=== PATIENT | female | born 1965 | race Caucasian/White ===

== ENCOUNTER 2017-05-30 09:11 | Observation (INO) | payer SELFPAY ==
[~2017-05-30] VITALS: Ht 152.4 cm; Wt 64.0 kg
[~2017-05-30 09:11] MED LIST: ALPR-411 PO; CALC500C70 PO; CITA40TA4 PO; CYAN500T PO; MULT-506 PO
[2017-05-30] MEDS ORDERED: NITROGLYCERIN 0.4 MG SL PER TAB CHARGE SL STA (09:55)
[2017-05-30] MEDS ORDERED: SODIUM CHLORIDE 0.9% 1000ML 1,000 ML IV STA (09:55)
--- NOTE | 2017-05-30 10:02 | EMERGENCY ROOM VISIT NOTE ---
History First contact with patient: 09:21 Chief Complaint: CHEST PAIN Stated Complaint: CHEST PAIN Nursing Triage Summary: Intermittent chest pain for two days. History of Present Illness The patient is a 51 year old female who presents to the Emergency Room with complaints of chest pain. The patient states she developed chest pain yesterday. She states that he is worsening throughout the day. She reports that the pain is stabbing and burning. She states it is left-sided and occasionally radiates down the left arm and around to the back. She states that she felt short of breath today as well as lightheaded. She states the pain is worse with deep inspiration. The patient rates her discomfort a 2/10. The patient was given nature glycerin with improvement in her pain. The patient reports a history of hypoglycemia. She reports a strong family history of coronary artery disease. She states that a cousin just of a myocardial infarction in their 40s. She states her mother had her first myocardial infarction in her 20s. Her mother also had lupus. The patient denies any known personal history of DVT or PE or coagulopathy. She states she has never had a stress test or echocardiogram. She states that she has had ongoing asymmetric left leg pain and swelling. Review of Systems A 10 system review of systems was completed with positives and pertinent negatives listed in the HPI. Past Medical/Surgical History Medical Problems: (1) Ulcer Surgical Problems: (1) H/O gastric bypass (2) Hx of cholecystectomy Family History Patient reports no known family medical history. Social History Smoking Status: Former Smoker Alcohol Use: occasionally Marital Status: other Occupation Status: employed Current/Historical Medications Scheduled Cyanocobalamin (Vitamin B-12), 500 MCG PO 2XWK Multivitamin (Multivitamin), 1 TAB PO DAILY Potassium Gluconate (Potassium Gluconate), 1 TAB PO 2XWK Miscellaneous Medications Calcium/Vitamin D (Os-Jann 500 Plus D), 1 TAB PO Allergies Coded Allergies: Codeine (Verified Adverse Reaction, Intermediate, N/V, 05/30/17) Physical Exam Vital Signs Date Time Temp Pulse Resp B/P (MAP) Pulse Ox O2 Delivery O2 Flow Rate FiO2 05/30/17 14:46 60 18 97 Room Air 05/30/17 13:41 61 100 05/30/17 13:31 110/67 05/30/17 13:11 47 18 100 05/30/17 13:05 61 05/30/17 13:01 119/80 05/30/17 12:52 58 18 112/69 98 Room Air 05/30/17 12:52 112/69 05/30/17 11:01 111/70 05/30/17 10:57 57 16 132/74 100 Room Air 05/30/17 10:56 132/74 05/30/17 10:42 74 20 107/72 97 Room Air 05/30/17 10:41 73 27 107/72 97 05/30/17 10:35 141/75 05/30/17 10:34 62 14 141/75 98 05/30/17 10:30 128/73 05/30/17 10:27 119/69 05/30/17 10:27 78 20 119/69 97 Room Air 05/30/17 10:16 140/68 05/30/17 10:11 56 20 100 05/30/17 10:01 144/78 05/30/17 10:00 64 20 144/78 99 Room Air 05/30/17 09:46 119/72 05/30/17 09:45 62 20 119/72 100 Room Air 05/30/17 09:41 62 18 100 05/30/17 09:31 126/80 05/30/17 09:30 72 20 126/80 96 Room Air 05/30/17 09:22 99 Room Air 05/30/17 09:21 99 Room Air 05/30/17 09:19 66 05/30/17 09:18 36.5 72 20 136/82 100 Room Air 05/30/17 09:15 136/82 Physical Exam VITALS: Vitals are noted on the nurse's note and reviewed by myself. Vital signs stable. The patient is afebrile. She is not tachycardic, tachypneic or hypoxic. GENERAL: This is a 51-year-old female, in no acute distress, nondiaphoretic, well-developed well-nourished. SKIN: There is edema noted to the left lower extremity. There is mild calf tenderness. There is no significant swelling in the right lower extremity. There is no tenting of the skin. Capillary reflex less than 2 seconds. HEAD: Normocephalic atraumatic. EARS: External auditory canals clear, tympanic membranes pearly correa without erythema or effusion bilaterally. EYES: Pupils equal round and reactive to light and accommodation. Conjunctivae without injection, sclerae without icterus. Extraocular movements intact. NOSE: Patent, turbinates without inflammation or discharge. MOUTH: Mucous membranes moist. Tonsils are not enlarged. Pharynx without erythema or exudate. Uvula midline. Airway patent. Tongue does not deviate. NECK: Supple without nuchal rigidity. No lymphadenopathy. No thyromegaly. Cervical spine is nontender. No JVD. HEART: Regular rate and rhythm without murmurs gallops or rubs. LUNGS: Clear to auscultation bilaterally without wheezes, rales or rhonchi. No retractions or accessory muscle use. ABDOMEN: Positive bowel sounds x 4. Soft, nontender, without masses or organomegaly. Lopez sign negative. MUSCULOSKELETAL: No muscle atrophy, erythema,noted. There is tenderness to palpation of the left calf which is swollen. There is no obvious palpable cord. Normal gait. Strength 5/5 throughout. NEURO: Patient was alert and oriented to person place and time. No focal neurological deficits. Medical Decision & Procedures ER Provider Diagnostic Interpretation: L-SPINE MIN 4 VIEWS ROUTINE HISTORY: 51-year-old female presents with acute low back pain without reported trauma. COMPARISON: Abdominal radiographs 06/13/2016. TECHNIQUE: Frontal, lateral, coned-down lateral and bilateral oblique images of the lumbar spine. FINDINGS: 5 nonrib bearing lumbar type vertebral segments are present. There is gentle convex left curvature of the lumbar spine, unchanged. There is no acute fracture or dislocation. No pars defect is seen. Intervertebral disc space narrowing is present at T11-T12. Anastomotic sutures are seen within the region of the epigastrium. Cholecystectomy clips are present. Contrast opacified urinary bladder and renal collecting systems are present from recent CTA study. There is atherosclerotic plaquing of the abdominal aorta. IMPRESSION: 1. No acute fracture or dislocation. 2. Mild intervertebral disc space narrowing at T11-T12. Venous Doppler left leg LEFT VENOUS DOPP LOWER EXT UNILAT CLINICAL HISTORY: left leg swelling pain. Edema. TECHNIQUE: Venous Doppler COMPARISON STUDY: None FINDINGS: Normal study IMPRESSION: Normal study CT ANGIOGRAM OF THE CHEST CLINICAL HISTORY: Atypical chest pain, shortness of breath, positive d-dimer. COMPARISON STUDY: Chest x-ray dated 05/30/2017 TECHNIQUE: Following the IV administration of 90 mL of Optiray-320, CT angiogram of the thorax was performed from the thoracic inlet to the lung bases utilizing the pulmonary embolus protocol. Images are reviewed in the axial, sagittal, and coronal planes. IV contrast was administered without complication. MIP imaging was performed. CT DOSE: 212.71 mGy.cm FINDINGS: There are postsurgical and esophagogastric junction. There is a hiatal hernia. There is a 15 mm left lobe thyroid nodule No pathologically enlarged axillary mediastinal or hilar lymph nodes were visualized. There was no evidence of thoracic aortic dilatation. There were no pulmonary artery filling defects to indicate acute pulmonary embolism. No pleural effusions are visualized. There are mild dependent atelectatic changes. There is underlying pulmonary emphysema. Reticulonodular right apical opacities are likely chronic. There there are no areas of parenchymal consolidation suspicious for an acute pneumonitis. IMPRESSION: 1. No evidence of acute pulmonary embolism 2. Pulmonary emphysema 3. Reticulonodular right apical opacities, likely chronic. 4. No evidence of acute parenchymal consolidation CHEST ONE VIEW PORTABLE CLINICAL HISTORY: 51 year-old Female presenting with chest pain. TECHNIQUE: Portable upright AP view of the chest was obtained. COMPARISON: 06/13/2016. FINDINGS: Cardiomediastinal silhouette normal. Previously noted reticular opacity at the right apex is less prominent on the current exam and is without change. No new focal infiltrate. Pleural spaces clear. Osseous structures and upper abdomen normal. IMPRESSION: 1. No acute cardiopulmonary disease. 2. Focal reticulation at the right apex has not progressed since the prior exam (stable since 2016) and may represent focal fibrosis or cicatrizing atelectasis as a consequence of prior infection, including mycobacterial. Laboratory Results 05/30/17 09:20 Red Blood Count 3.94, Mean Corpuscular Volume 85.8, Mean Corpuscular Hemoglobin 27.9, Mean Corpuscular Hemoglobin Concent 32.5, Mean Platelet Volume 11.0, Neutrophils (%) (Auto) 67.4, Lymphocytes (%) (Auto) 27.9, Monocytes (%) (Auto) 3.7, Eosinophils (%) (Auto) 0.3, Basophils (%) (Auto) 0.6, Neutrophils # (Auto) 4.60, Lymphocytes # (Auto) 1.90, Monocytes # (Auto) 0.25, Eosinophils # (Auto) 0.02, Basophils # (Auto) 0.04 05/30/17 09:20 Test 05/30/17 09:20 05/30/17 10:54 White Blood Count 6.82 K/uL (4.8-10.8) Red Blood Count 3.94 M/uL (4.2-5.4) Hemoglobin 11.0 g/dL (12.0-16.0) Hematocrit 33.8 % (37-47) Mean Corpuscular Volume 85.8 fL (80-100) Mean Corpuscular Hemoglobin 27.9 pg (25-34) Mean Corpuscular Hemoglobin Concent 32.5 g/dl (32-36) Platelet Count 305 K/uL (130-400) Mean Platelet Volume 11.0 fL (7.4-10.4) Neutrophils (%) (Auto) 67.4 % Lymphocytes (%) (Auto) 27.9 % Monocytes (%) (Auto) 3.7 % Eosinophils (%) (Auto) 0.3 % Basophils (%) (Auto) 0.6 % Neutrophils # (Auto) 4.60 K/uL (1.4-6.5) Lymphocytes # (Auto) 1.90 K/uL (1.2-3.4) Monocytes # (Auto) 0.25 K/uL (0.11-0.59) Eosinophils # (Auto) 0.02 K/uL (0-0.5) Basophils # (Auto) 0.04 K/uL (0-0.2) RDW Standard Deviation 40.1 fL (36.4-46.3) RDW Coefficient of Variation 12.7 % (11.5-14.5) Immature Granulocyte % (Auto) 0.1 % Immature Granulocyte # (Auto) 0.01 K/uL (0.00-0.02) Prothrombin Time 10.7 SECONDS (9.0-12.0) Prothromb Time International Ratio 1.0 (0.9-1.1) Activated Partial Thromboplast Time 25.6 SECONDS (21.0-31.0) Partial Thromboplastin Ratio 1.0 D-Dimer 630 ug/L FEU (0-500) Anion Gap 9.0 mmol/L (3-11) Est Creatinine Clear Calc Drug Dose 77.4 ml/min Estimated GFR () 110.3 Estimated GFR (Non- 95.1 BUN/Creatinine Ratio 11.5 (10-20) Calcium Level 8.5 mg/dl (8.5-10.1) Magnesium Level 2.2 mg/dl (1.8-2.4) Total Bilirubin 0.5 mg/dl (0.2-1) Aspartate Amino Transf (AST/SGOT) 18 U/L (15-37) Alanine Aminotransferase (ALT/SGPT) 25 U/L (12-78) Alkaline Phosphatase 113 U/L (45-117) Total Creatine Kinase 149 U/L (26-192) Total Protein 6.8 gm/dl (6.4-8.2) Albumin 3.6 gm/dl (3.4-5.0) Globulin 3.2 gm/dl (2.5-4.0) Albumin/Globulin Ratio 1.1 (0.9-2) Thyroid Stimulating Hormone (TSH) 0.723 uIu/ml (0.300-4.500) Urine Color DK YELLOW Urine Appearance CLEAR (CLEAR) Urine pH 5.5 (4.5-7.5) Urine Specific Donnelly 1.016 (1.000-1.030) Urine Protein NEG (NEG) Urine Glucose (UA) NEG (NEG) Urine Ketones NEG (NEG) Urine Occult Blood NEG (NEG) Urine Nitrite POS (NEG) Urine Bilirubin NEG (NEG) Urine Urobilinogen NEG (NEG) Urine Leukocyte Esterase NEG (NEG) Urine WBC (Auto) 1-5 /hpf (0-5) Urine RBC (Auto) 0-4 /hpf (0-4) Urine Hyaline Casts (Auto) 0 /lpf (0-5) Urine Epithelial Cells (Auto) 5-10 /lpf (0-5) Urine Bacteria (Auto) NEG (NEG) Medications Administered Medications (Trade) Dose Ordered Sig/Angela Route Start Time Stop Time Status Last Admin Dose Admin Nitroglycerin (Nitrostat Tab) 0.4 mg Q5M STAT SL 05/30/17 09:55 05/30/17 09:57 DC 05/30/17 10:22 0.4 MG Sodium Chloride 1,000 ml @ 125 mls/hr Q8H STAT IV 05/30/17 09:55 05/30/17 16:05 DC 05/30/17 09:55 125 MLS/HR Procedure The 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 They maintained a normal sinus rhythm without ectopy. ECG Indication: chest pain Rate (beats per minute): 65 Rhythm: normal sinus Findings: no acute ischemic change Change: no significant change ED Course The patient was seen and examined. Previous visits were reviewed. The patient does not have a fever or leukocytosis. She does have a mild anemia. She does not have any significant electrolyte abnormalities. Cardiac enzymes were not elevated. TSH was within normal limits. INR was 1.0. D-dimer was elevated. Urinalysis suggests contamination. It should be noted that the patient is taking Azo. Chest x-ray reveals chronic findings CTA of the chest was negative for pulmonary embolus X-ray of the lumbar spine reveals chronic changes Ultrasound of the left lower extremity is negative for DVT The patient presents to the emergency department for chest pain. Her chest pain most recent episode started just prior to arrival. She was given nitroglycerin in the ambulance which improve her pain markedly. Her pain was resolved with an additional nitroglycerin in the emergency department. She has also had low back pain. She has also had dyspnea and left leg swelling. I do not see any evidence for DVT or PE at this time. Given the patient's risk factors, chest pain and the fact that it was relieved with nitroglycerin, she would benefit from further evaluation and management in the hospital. [facility] patient. The case was discussed with Dr. Pedersen who agrees with the assessment and treatment plan. Medical Decision DIFFERENTIAL DIAGNOSIS: Aortic dissection, myocarditis, pericarditis, cervical disc disease, costochondritis, herpes zoster, rib fracture, pleuritis, pneumonia , pulmonary embolus, tension pneumothorax, anxiety disorder, somatoform disorder , choledocholithiasis, status, esophagitis, esophageal spasm, esophageal reflux , esophageal rupture, pancreatitis, peptic ulcer disease, cardiac ischemia, ST elevation NE, acute coronary syndrome, arrhythmia, coronary artery vasospasm. vavular heart disease, coronary artery disease, among others. Impression Primary Impression: Substernal precordial chest pain Additional Impressions: Low back pain Leg swelling Departure Information Dispostion Admitted as an inpatient Referrals No Doctor, Assigned Forms HOME CARE DOCUMENTATION FORM, IMPORTANT VISIT INFORMATION Patient Instructions [facility] Problem Qualifiers Additional Impressions: Low back pain Chronicity: chronic
[2017-05-30 10:03] LABS: BASO % 0.6 %; BASO ABS # 0.04 K/uL (0-0.2); COMPLETE YES; EOS % 0.3 %; HEMATOCRIT 33.8 % (37-47); IG% 0.1 %; LYMPH % 27.9 %; MEAN CELL VOLUME 85.8 fL (80-100); MEAN CORPUSCULAR HEMOGLOBIN 27.9 pg (25-34); MEAN CORPUSCULAR HGB CONC 32.5 g/dl (32-36); MONO % 3.7 %; NEUT % 67.4 %; PLATELET COUNT 305 K/uL (130-400); RED BLOOD COUNT 3.94 M/uL (4.2-5.4); WHITE BLOOD COUNT 6.82 K/uL (4.8-10.8)
[2017-05-30 10:11] LABS: ALT/SGPT 25 U/L (12-78); BLOOD UREA NITROGEN 9 mg/dl (7-18); BUN/CREATININE RATIO 11.5 (10-20); CALCIUM 8.5 mg/dl (8.5-10.1); CARBON DIOXIDE 25 mmol/L (21-32); CHLORIDE 109 mmol/L (98-107); CREATININE 0.74 mg/dl (0.60-1.20); GLUCOSE 86 mg/dl (70-99); POTASSIUM 3.2 mmol/L (3.5-5.1); SODIUM 143 mmol/L (136-145)
--- NOTE | 2017-05-30 10:19 | DIAGNOSTIC IMAGING REPORT ---
CHEST ONE VIEW PORTABLE CLINICAL HISTORY: 51 year-old Female presenting with chest pain. TECHNIQUE: Portable upright AP view of the chest was obtained. COMPARISON: 06/13/2016. FINDINGS: Cardiomediastinal silhouette normal. Previously noted reticular opacity at the right apex is less prominent on the current exam and is without change. No new focal infiltrate. Pleural spaces clear. Osseous structures and upper abdomen normal. IMPRESSION: 1. No acute cardiopulmonary disease. 2. Focal reticulation at the right apex has not progressed since the prior exam (stable since 2015) and may represent focal fibrosis or cicatrizing atelectasis as a consequence of prior infection, including mycobacterial. Electronically signed by: Tae Rob 05/30/2017 10:18 AM Dictated Date/Time: 05/30/2017 10:15 AM
[2017-05-30 10:21] LABS: ALB/GLOB RATIO 1.1 (0.9-2); ALKALINE PHOSPHATASE 113 U/L (45-117); AST/SGOT 18 U/L (15-37); CKMB/CK RATIO 2.5 (0-3.0); THYROID STIMULATING HORMONE 0.723 uIu/ml (0.300-4.500)
[2017-05-30 10:41] LABS: PROTHROMBIN TIME (PATIENT) 10.7 SECONDS (9.0-12.0)
[2017-05-30 11:15] LABS: URINE APPEARANCE CLEAR (CLEAR); URINE BILIRUBIN NEG (NEG); URINE COLOR DK YELLOW; URINE NITRITE POS (NEG); URINE PH 5.5 (4.5-7.5); URINE SPECIFIC GRAVITY 1.016 (1.000-1.030); UROBILINOGEN NEG (NEG); ZZUR CULT IF INDIC CLEAN CATCH NO
[2017-05-30] MEDS ORDERED: OPTIRAY 320 IV PRN (11:15)
[2017-05-30 11:27] LABS: MANUAL MICROSCOPIC REQUIRED? NO; REVIEW REQ? NO
--- NOTE | 2017-05-30 11:32 | DIAGNOSTIC IMAGING REPORT ---
CT ANGIOGRAM OF THE CHEST CLINICAL HISTORY: Atypical chest pain, shortness of breath, positive d-dimer. COMPARISON STUDY: Chest x-ray dated 05/30/2017 TECHNIQUE: Following the IV administration of 90 mL of Optiray-320, CT angiogram of the thorax was performed from the thoracic inlet to the lung bases utilizing the pulmonary embolus protocol. Images are reviewed in the axial, sagittal, and coronal planes. IV contrast was administered without complication. MIP imaging was performed. CT DOSE: 212.71 mGy.cm FINDINGS: There are postsurgical and esophagogastric junction. There is a hiatal hernia. There is a 15 mm left lobe thyroid nodule No pathologically enlarged axillary mediastinal or hilar lymph nodes were visualized. There was no evidence of thoracic aortic dilatation. There were no pulmonary artery filling defects to indicate acute pulmonary embolism. No pleural effusions are visualized. There are mild dependent atelectatic changes. There is underlying pulmonary emphysema. Reticulonodular right apical opacities are likely chronic. There there are no areas of parenchymal consolidation suspicious for an acute pneumonitis. IMPRESSION: 1. No evidence of acute pulmonary embolism 2. Pulmonary emphysema 3. Reticulonodular right apical opacities, likely chronic. 4. No evidence of acute parenchymal consolidation Electronically signed by: Moshe Vasquez M.D. 05/30/2017 11:30 AM Dictated Date/Time: 05/30/2017 11:21 AM
--- NOTE | 2017-05-30 12:52 | DIAGNOSTIC IMAGING REPORT ---
L-SPINE MIN 4 VIEWS ROUTINE HISTORY: 51-year-old female presents with acute low back pain without reported trauma. COMPARISON: Abdominal radiographs 06/13/2016. TECHNIQUE: Frontal, lateral, coned-down lateral and bilateral oblique images of the lumbar spine. FINDINGS: 5 nonrib bearing lumbar type vertebral segments are present. There is gentle convex left curvature of the lumbar spine, unchanged. There is no acute fracture or dislocation. No pars defect is seen. Intervertebral disc space narrowing is present at T11-T12. Anastomotic sutures are seen within the region of the epigastrium. Cholecystectomy clips are present. Contrast opacified urinary bladder and renal collecting systems are present from recent CTA study. There is atherosclerotic plaquing of the abdominal aorta. IMPRESSION: 1. No acute fracture or dislocation. 2. Mild intervertebral disc space narrowing at T11-T12. Electronically signed by: Naren Enrique 05/30/2017 12:51 PM Dictated Date/Time: 05/30/2017 12:47 PM
--- NOTE | 2017-05-30 14:29 | DIAGNOSTIC IMAGING REPORT ---
Venous Doppler left leg LEFT VENOUS DOPP LOWER EXT UNILAT CLINICAL HISTORY: left leg swelling pain. Edema. TECHNIQUE: Venous Doppler COMPARISON STUDY: None FINDINGS: Normal study IMPRESSION: Normal study Electronically signed by: Phil Wall M.D. 05/30/2017 2:27 PM Dictated Date/Time: 05/30/2017 2:27 PM
[2017-05-30] MEDS ORDERED: ACETAMINOPHEN 325 MG TAB PO PRN (15:00)
[2017-05-30] MEDS ORDERED: ONDANSETRON INJ 2 MG/ML 2 ML VIAL IV PRN (15:00)
[2017-05-30] MEDS ORDERED: NITROGLYCERIN 0.4 MG SL PER TAB CHARGE SL PRN (15:00)
[2017-05-30] MEDS ORDERED: POTA550T4 PO (15:06)
[2017-05-30] MEDS ORDERED: IV FLUIDS COMPLETED PRN (15:30)
[2017-05-30] MEDS ORDERED: POTASSIUM CHLORIDE 10 MEQ TABCR PO SCH (16:00)
--- NOTE | 2017-05-30 16:07 | History and Physical ---
History & Physical Date & Time of Service: May 30, 2017 ~ 14:30 Chief Complaint: Chest Pain Primary Care Physician: Gibson Arredondo History of Present Illness 51 year old female who presents to the ER with chest pain. Patient reports she first noticed the pain yesterday while a picnic. She reports the pain is located on the left side her chest and radiated into her left shoulder and down into the left arm. She describes the pain as a stabbing. She reports several episodes since then. She denies any specific causative or alleviating factors. She rates the pain #8/10 at its worst. Today while at work the pain returned and she had associated shortness of breath, lightheadedness, and diaphoresis. Patient received nitro and has had resolution of her pain. She has chronic low back pain which is unchanged. She reports she other pond has been feeling well recently. Has been tolerating ADLs without any problems. Climbs two flights of stairs regularly without difficulty. She denies abdominal pain, vomiting, and diarrhea. No fever or chills. She denies urinary symptoms. In the ER, initial troponin is negative and EKG does not show any acute ST changes. CTA chest is negative for PE. LLE US is negative for DVT. Past Medical/Surgical History Medical Problems: (1) No significant medical problems Status: Chronic (2) Ulcer Status: Resolved Surgical Problems: (1) H/O gastric bypass Status: Resolved (2) Hx of cholecystectomy Status: Resolved Family History Diabetes mellitus (DM) MOTHER FH: CAD (coronary artery disease) MOTHER (first [place] in her 20s) GRANDFATHER ([place] in his 70s) UNCLE ( from [place] in his 50s) COUSIN ( from [place] in his 40s) FH: lupus MOTHER FH: suicide FATHER (at age 40, ? history of heart problems) Social History Smoking Status: Former Smoker Alcohol Use: none Marital Status: other Occupational Status: employed Allergies Coded Allergies: Codeine (Verified Adverse Reaction, Intermediate, N/V, 05/30/17) Home Medications Scheduled Cyanocobalamin (Vitamin B-12), 500 MCG PO 2XWK Multivitamin (Multivitamin), 1 TAB PO DAILY Potassium Gluconate (Potassium Gluconate), 1 TAB PO 2XWK Miscellaneous Medications Calcium/Vitamin D (Os-Jann 500 Plus D), 1 TAB PO Review of Systems ROS per HPI, all other systems reviewed and negative Physical Exam Vital Signs Date Time Temp Pulse Resp B/P (MAP) Pulse Ox O2 Delivery O2 Flow Rate FiO2 05/30/17 14:59 133/75 05/30/17 14:46 60 18 97 Room Air 05/30/17 13:05 61 05/30/17 12:52 58 18 112/69 98 Room Air 05/30/17 10:57 57 16 132/74 100 Room Air 05/30/17 10:42 74 20 107/72 97 Room Air 05/30/17 10:34 62 14 141/75 98 05/30/17 10:27 78 20 119/69 97 Room Air 05/30/17 10:00 64 20 144/78 99 Room Air 05/30/17 09:45 62 20 119/72 100 Room Air 05/30/17 09:30 72 20 126/80 96 Room Air 05/30/17 09:22 99 Room Air 05/30/17 09:21 99 Room Air 05/30/17 09:19 66 05/30/17 09:18 36.5 72 20 136/82 100 Room Air General Appearance: no apparent distress Head: normocephalic Eyes: normal inspection ENT: hearing grossly normal Neck: supple, no JVD Respiratory/Chest: chest non-tender, lungs clear, normal breath sounds, no respiratory distress Cardiovascular: regular rate, rhythm, normal peripheral pulses, + pertinent finding (trace edema LLE) Abdomen/GI: normal bowel sounds, non tender, soft Extremities/Musculoskelatal: normal inspection, no calf tenderness Neurologic/Psych: no motor/sensory deficits, alert, normal mood/affect, oriented x 3 Skin: normal color, warm/dry Diagnostics Laboratory Results Results Past 24 Hours Test 05/30/17 09:20 05/30/17 10:54 05/30/17 15:00 Range/Units White Blood Count 6.82 4.8-10.8 K/uL Red Blood Count 3.94 4.2-5.4 M/uL Hemoglobin 11.0 12.0-16.0 g/dL Hematocrit 33.8 37-47 % Mean Corpuscular Volume 85.8 80-100 fL Mean Corpuscular Hemoglobin 27.9 25-34 pg Mean Corpuscular Hemoglobin Concent 32.5 32-36 g/dl Platelet Count 305 130-400 K/uL Mean Platelet Volume 11.0 7.4-10.4 fL Neutrophils (%) (Auto) 67.4 % Lymphocytes (%) (Auto) 27.9 % Monocytes (%) (Auto) 3.7 % Eosinophils (%) (Auto) 0.3 % Basophils (%) (Auto) 0.6 % Neutrophils # (Auto) 4.60 1.4-6.5 K/uL Lymphocytes # (Auto) 1.90 1.2-3.4 K/uL Monocytes # (Auto) 0.25 0.11-0.59 K/uL Eosinophils # (Auto) 0.02 0-0.5 K/uL Basophils # (Auto) 0.04 0-0.2 K/uL RDW Standard Deviation 40.1 36.4-46.3 fL RDW Coefficient of Variation 12.7 11.5-14.5 % Immature Granulocyte % (Auto) 0.1 % Immature Granulocyte # (Auto) 0.01 0.00-0.02 K/uL Prothrombin Time 10.7 9.0-12.0 SECONDS Prothromb Time International Ratio 1.0 0.9-1.1 Activated Partial Thromboplast Time 25.6 21.0-31.0 SECONDS Partial Thromboplastin Ratio 1.0 D-Dimer 630 0-500 ug/L FEU Sodium Level 143 136-145 mmol/L Potassium Level 3.2 3.5-5.1 mmol/L Chloride Level 109 98-107 mmol/L Carbon Dioxide Level 25 21-32 mmol/L Anion Gap 9.0 3-11 mmol/L Blood Urea Nitrogen 9 7-18 mg/dl Creatinine 0.74 0.60-1.20 mg/dl Est Creatinine Clear Calc Drug Dose 77.4 ml/min Estimated GFR () 110.3 Estimated GFR (Non- 95.1 BUN/Creatinine Ratio 11.5 10-20 Random Glucose 86 70-99 mg/dl Calcium Level 8.5 8.5-10.1 mg/dl Magnesium Level 2.2 1.8-2.4 mg/dl Total Bilirubin 0.5 0.2-1 mg/dl Aspartate Amino Transf (AST/SGOT) 18 15-37 U/L Alanine Aminotransferase (ALT/SGPT) 25 12-78 U/L Alkaline Phosphatase 113 45-117 U/L Total Creatine Kinase 149 26-192 U/L Creatine Kinase MB 3.7 0.5-3.6 ng/ml Creatine Kinase MB Ratio 2.5 0-3.0 Troponin I < 0.015 0-0.045 ng/ml Total Protein 6.8 6.4-8.2 gm/dl Albumin 3.6 3.4-5.0 gm/dl Globulin 3.2 2.5-4.0 gm/dl Albumin/Globulin Ratio 1.1 0.9-2 Thyroid Stimulating Hormone (TSH) 0.723 0.300-4.500 uIu/ml Urine Color DK YELLOW Urine Appearance CLEAR CLEAR Urine pH 5.5 4.5-7.5 Urine Specific [place] 1.016 1.000-1.030 Urine Protein NEG NEG Urine Glucose (UA) NEG NEG Urine Ketones NEG NEG Urine Occult Blood NEG NEG Urine Nitrite POS NEG Urine Bilirubin NEG NEG Urine Urobilinogen NEG NEG Urine Leukocyte Esterase NEG NEG Urine WBC (Auto) 1-5 0-5 /hpf Urine RBC (Auto) 0-4 0-4 /hpf Urine Hyaline Casts (Auto) 0 0-5 /lpf Urine Epithelial Cells (Auto) 5-10 0-5 /lpf Urine Bacteria (Auto) NEG NEG Diagnostic Radiology CXR IMPRESSION: 1. No acute cardiopulmonary disease. 2. Focal reticulation at the right apex has not progressed since the prior exam (stable since 2016) and may represent focal fibrosis or cicatrizing atelectasis as a consequence of prior infection, including mycobacterial. CTA CHEST IMPRESSION: 1. No evidence of acute pulmonary embolism 2. Pulmonary emphysema 3. Reticulonodular right apical opacities, likely chronic. 4. No evidence of acute parenchymal consolidation LLE DOPPLER IMPRESSION: Normal study LUMBAR SPINE XR IMPRESSION: 1. No acute fracture or dislocation. 2. Mild intervertebral disc space narrowing at T11-T12. Impression Assessment and Plan CHEST PAIN - admit to tele - patient presenting with intermittent left sided chest pain radiating into left shoulder and arm since yesterday - risk factors: + family history, former smoker - CTA chest negative for PE - initial troponin negative, EKG without acute ST changes - continue to cycle cardiac enzymes, resting echo to evaluate for wall motion abnormalities - if negative, stress test in AM - s/p ASA for EMS, will continue with ASA 81mg daily - PRN nitro and EKG with further chest pain - check A1C and lipid panel HYPOKALEMIA - replace, follow up labs - Mg+ WNL DVT PROPHYLAXIS - SQ Lovenox DISPO - The patient will be placed as observation status for now until further work up is complete. Attending Note: Patient is a 51 yr female with PMH of anxiety disorder/Bipolar, GERD presents with history of left sided chest pain. Reports recently recovered from a viral illness. Reports she was on Citalopram and ? Celexa previously which she discontinued secondary to side effects and has been on Xanax as well which her PCP prescribed temporarily and currently has been having Insurance issues and so is not on any meds. Physical Exam: Vitals signs as noted above General Appearance:Moderately built and nourished, no apparent distress Head: normocephalic, Atraumatic Eyes: normal inspection, EOMI, PERRL Neck: supple, Trachea midline Respiratory/Chest: Normal breath sounds, CTA Cardiovascular: S1, S2, No murmur Abdomen/GI:Soft, Non tender, Bowel sounds present Extremities/Musculoskelatal:normal inspection, no edema Neurologic/Psych:AAOX3, grossly no focal neurological deficits Skin:normal color,warm Assessment and Plan: Chest Pain R/O ACS Elevated d-dimer Likely related to anxiety Plan for stress test in AM EKG, Troponin negative CTA: negative for PE Doppler: No DVT GERD Takes over the counter Nexium PRN I personally reviewed the record. Patient is interviewed and examined at bedside. Patient's care is coordinated with Yumiko Tejeda SPECIAL PROCEDURES TECHNOLOGIST. Please refer to the documentation above for details of patient's presentation and for discussion of other issues. VTE Prophylaxis VTE Risk Assessment Done? Y/N: Yes Risk Level: Moderate
[2017-05-30 17:08] VITALS: BP 129/72; PULSE 92; TEMP 36.6; O2SAT 96; Ht 152.4 cm; Wt 64.0 kg
[2017-05-30 20:00] VITALS: O2SAT 96
[2017-05-30] MEDS ORDERED: ENOXAPARIN 40 MG/0.4 ML SYR SC SCH (21:00)
[2017-05-30 23:47] VITALS: BP 106/71; PULSE 61; TEMP 36.5; O2SAT 99
[2017-05-31 04:00] VITALS: BP 119/85; PULSE 100; TEMP 36.6; O2SAT 100
[2017-05-31 06:59] LABS: ESTIMATED AVERAGE GLUCOSE 97 mg/dl; HA1C FLAG Normal (Normal)
[2017-05-31 07:15] LABS: HEMATOCRIT 31.8 % (37-47); MEAN CELL VOLUME 86.4 fL (80-100); MEAN CORPUSCULAR HEMOGLOBIN 28.5 pg (25-34); MEAN PLATELET VOLUME 10.6 fL (7.4-10.4); PLATELET COUNT 230 K/uL (130-400); RED BLOOD COUNT 3.68 M/uL (4.2-5.4); WHITE BLOOD COUNT 5.61 K/uL (4.8-10.8)
[2017-05-31 07:46] VITALS: BP 118/79; PULSE 47; TEMP 36.5; O2SAT 100
[2017-05-31 07:50] LABS: BUN/CREATININE RATIO 10.9 (10-20); CALCIUM 8.8 mg/dl (8.5-10.1); CHOLESTEROL/HDL RATIO 3.8; CREATININE 0.7 mg/dl (0.60-1.20); POTASSIUM 4.3 mmol/L (3.5-5.1)
[2017-05-31] MEDS ORDERED: MULTIVITAMIN TAB PO SCH (09:00)
[2017-05-31] MEDS ORDERED: ASPIRIN 81 MG ECTAB PO SCH (09:00)
--- NOTE | 2017-05-31 11:27 | EXERCISE STRESS ECHO ---
*NOTICE TO RECEIVING DEMOCRAT AGENCY This information is strictly Confidential and protected under [place] law. [place] law prohibits you from making any further disclosure of this information unless further disclosure is expressly permitted by the written consent of the person to whom it pertains or is authorized by law. A general authorization for the release of medical or other information is not sufficient for this purpose. Hospital accepts no responsibility if the information is made available to any other person, INCLUDING THE PATIENT. Interpretation Summary * Name: VITO ISAAC Study Date: 05/31/2017 09:18 AM BP: 124/66 mmHg * Patient Location: [facility]\S\N281\S\1 HR: 48 * : 1965 (M/d/yyyy) Gender: Female Height: 60 in * Age: 51 yrs Ethnicity: [place] Weight: 143 lb * Ordering Physician: Yumiko Tejeda * Referring Physician: Self, Referred * Performed By: Ruba Booker RCS * * Reason For Study: CHEST PAIN * BSA: 1.6 m2 * STRESS STUDY: Normal exercise stress echocardiogram. No echocardiographic or ECG evidence of myocardial ischemia having achieved heart rate adequate for diagnostic purposes. * -- Conclusions -- * Limited heart rate response but adequate for the purpose of this study. * STRESS STUDY: Normal exercise stress echocardiogram. No echocardiographic or ECG evidence of myocardial ischemia having achieved heart rate adequate for diagnostic purposes. Procedure Details * ECHOEX, CPT #28315 * ECHO COLOR FLOW, CPT #[id number] * ECHO DOPPLER, CPT #23048 Left Ventricle * The left ventricle is normal in size. * Ejection Fraction = 50-55%. * The left ventricular wall motion is normal at rest. Right Ventricle * The right ventricle is normal size. * The right ventricular systolic function is normal. Atria * The left atrial size is normal. * Right atrial size is normal. Mitral Valve * The mitral valve is normal in structure and function. Tricuspid Valve * The tricuspid valve is normal in structure and function. Aortic Valve * The aortic valve is normal in structure and function. Pulmonic Valve * The pulmonic valve is not well visualized. Great Vessels * The aortic root and proximal ascending aorta are normal sized. Pericardium * There is no pericardial effusion. Stress Parameters * Normal baseline electrocardiogram. * Stress ECG: No ST changes. No arrhythmias. * The stress portion of this study was personally supervised by the undersigned interpreting physician. * Rest heart rate was '48' BPM. * Rest blood pressure was '124/66' * Maximum heart rate achieved was 131 bpm. * Maximum heart rate was 76 % of maximum age-predicted heart rate. * Maximum blood pressure was '193/54' * Total exercise time was '06:00' * Maximum exercise MET level achieved was '7.00' METS * Maximum treadmill speed was '2.50' miles per hour. * Maximum treadmill elevation was '12.00'% grade. Right Ventricle * The right ventricular wall motion is normal. MMode 2D Measurements and Calculations IVSd 1.2 cm IVSs 1.6 cm LVIDd 4.1 cm LVIDs 2.8 cm LVPWd 1.0 cm LVPWs 0.95 cm IVS/LVPW 1.2 FS 31.1 % EDV(Teich) 74.5 ml ESV(Teich) 30.4 ml EF(Teich) 59.2 % EDV(cubed) 69.3 ml ESV(cubed) 22.7 ml EF(cubed) 67.2 % % IVS thick 33.4 % % LVPW thick -9.42 % LV mass(C)d 158.8 grams LV mass(C)dI 98.1 grams/m\S\2 LV mass(C)s 113.6 grams LV mass(C)sI 70.2 grams/m\S\2 SV(Teich) 44.1 ml SI(Teich) 27.3 ml/m\S\2 SV(cubed) 46.6 ml SI(cubed) 28.8 ml/m\S\2 Ao root diam 2.9 cm Ao root area 6.8 cm\S\2 ACS 2.1 cm LA dimension 3.6 cm LA/Ao 1.2 LVOT diam 2.0 cm LVOT area 3.2 cm\S\2 LVAd ap4 27.8 cm\S\2 LVLd ap4 8.4 cm EDV(MOD-sp4) 74.4 ml EDV(sp4-el) 78.2 ml LVAs ap4 18.5 cm\S\2 LVLs ap4 7.5 cm ESV(MOD-sp4) 38.0 ml ESV(sp4-el) 38.5 ml EF(MOD-sp4) 49.0 % EF(sp4-el) 50.8 % LVAd ap2 27.8 cm\S\2 LVLd ap2 7.3 cm EDV(MOD-sp2) 85.2 ml EDV(sp2-el) 90.3 ml LVAs ap2 17.5 cm\S\2 LVLs ap2 6.2 cm ESV(MOD-sp2) 39.7 ml ESV(sp2-el) 41.7 ml EF(MOD-sp2) 53.5 % EF(sp2-el) 53.8 % LVLd %diff -14.90 % EDV(MOD-bp) 85.4 ml LVLs %diff -21.34 % ESV(MOD-bp) 42.1 ml EF(MOD-bp) 50.7 % SV(MOD-sp4) 36.4 ml SI(MOD-sp4) 22.5 ml/m\S\2 SV(MOD-sp2) 45.6 ml SI(MOD-sp2) 28.2 ml/m\S\2 SV(MOD-bp) 43.3 ml SI(MOD-bp) 26.7 ml/m\S\2 SV(sp4-el) 39.8 ml SI(sp4-el) 24.6 ml/m\S\2 SV(sp2-el) 48.6 ml SI(sp2-el) 30.0 ml/m\S\2 Doppler Measurements and Calculations MV E max shelia 108.4 cm/sec MV A max shelia 39.4 cm/sec MV E/A 2.8 MV P1/2t max shelia 118.9 cm/sec MV P1/2t 88.6 msec MVA(P1/2t) 2.5 cm\S\2 MV dec slope 392.9 cm/sec\S\2 MV dec time 0.27 sec Ao V2 max 143.8 cm/sec Ao max PG 8.3 mmHg Ao max PG (full) 4.2 mmHg GENARO(V,A) 2.3 cm\S\2 GENARO(V,D) 2.3 cm\S\2 LV V1 max PG 4.1 mmHg LV V1 max 101.1 cm/sec PA V2 max 77.7 cm/sec PA max PG 2.4 mmHg TR max shelia 235.2 cm/sec
--- NOTE | 2017-05-31 13:26 | Progress Note ---
Internal Med Progress Note Date of Service: May 31, 2017. Provider Documentation: SUBJECTIVE: Patient is lying in her bed in no apparent distress. She is chest pain free and has no SOB. Has been able to walk around in the hallway without any new symptoms. No other new change or complaint. OBJECTIVE: Vital Signs-as noted below Examination: General Appearance: Alert/Awake and is in no apparent distress Head: normocephalic Eyes: normal inspection ENT: Hearing grossly normal. Ears, Nose & Throat are normal looking. Neck: Supple, Midline trachea, no JVD Respiratory/Chest: chest non-tender, lungs clear, normal breath sounds, no respiratory distress Cardiovascular: Regular rate, rhythm, normal peripheral pulses, Trace edema LLE. Abdomen/GI: normal bowel sounds, non tender, soft Extremities/Musculoskeletal: normal inspection, no calf tenderness Neurologic/Psych: no motor/sensory deficits, alert, normal mood/affect, oriented x 3 Skin: normal color, warm/dry Lab data as noted below. ASSESSMENT & PLAN: Stress Echocardiogram (05/31/2017) STRESS STUDY: Normal exercise stress echocardiogram. No echocardiographic or ECG evidence of myocardial ischemia having achieved heart rate adequate for diagnostic purposes. CHEST PAIN : Resolved. Patient presenting with intermittent left sided chest pain radiating into left shoulder and arm since yesterday Risk factors: + family history, former smoker. -CTA chest negative for PE -Serial Troponin are negative, EKG without acute ST changes - s/p ASA for EMS, will continue with ASA 81mg daily -PRN nitro and EKG with further chest pain - Lipid panel shows HDL 39 & LDL 94. Hypokalemia: Resolved. DVT PROPHYLAXIS: SQ Lovenox Code Status: FULL CODE Disposition: Discharge home later today Follow up with PCP within 7 days after discharge. Vital Signs: Date Time Temp Pulse Resp B/P (MAP) Pulse Ox O2 Delivery O2 Flow Rate FiO2 05/31/17 11:48 Room Air 05/31/17 08:00 Room Air 05/31/17 07:46 36.5 47 16 118/79 (92) 100 Room Air 05/31/17 04:00 Room Air 05/31/17 04:00 36.6 100 14 119/85 (96) 100 BiPAP 50 05/31/17 00:00 Room Air 05/30/17 23:47 36.5 61 16 106/71 (83) 99 Room Air 05/30/17 20:00 96 Room Air 05/30/17 17:08 36.6 92 20 129/72 96 Room Air 05/30/17 15:11 62 27 05/30/17 15:01 126/72 05/30/17 14:59 133/75 05/30/17 14:55 133/75 05/30/17 14:46 60 18 97 Room Air 05/30/17 13:41 61 100 Lab Results: Results Past 24 Hours Test 05/30/17 15:00 05/30/17 21:00 05/30/17 21:22 05/31/17 06:47 Range/Units Creatine Kinase MB 2.2 3.0 0.5-3.6 ng/ml Creatine Kinase MB Ratio 0-3.0 Troponin I < 0.015 < 0.015 0-0.045 ng/ml White Blood Count 5.61 4.8-10.8 K/uL Red Blood Count 3.68 4.2-5.4 M/uL Hemoglobin 10.5 12.0-16.0 g/dL Hematocrit 31.8 37-47 % Mean Corpuscular Volume 86.4 80-100 fL Mean Corpuscular Hemoglobin 28.5 25-34 pg Mean Corpuscular Hemoglobin Concent 33.0 32-36 g/dl RDW Standard Deviation 41.3 36.4-46.3 fL RDW Coefficient of Variation 12.9 11.5-14.5 % Platelet Count 230 130-400 K/uL Mean Platelet Volume 10.6 7.4-10.4 fL Sodium Level 144 136-145 mmol/L Potassium Level 4.3 3.5-5.1 mmol/L Chloride Level 110 98-107 mmol/L Carbon Dioxide Level 29 21-32 mmol/L Anion Gap 5.0 3-11 mmol/L Blood Urea Nitrogen 8 7-18 mg/dl Creatinine 0.70 0.60-1.20 mg/dl Est Creatinine Clear Calc Drug Dose 81.2 ml/min Estimated GFR () 117.9 Estimated GFR (Non- 101.7 BUN/Creatinine Ratio 10.9 10-20 Random Glucose 89 70-99 mg/dl Calcium Level 8.8 8.5-10.1 mg/dl Triglycerides Level 71 0-150 mg/dl Cholesterol Level 147 0-200 mg/dl HDL Cholesterol 39 mg/dl LDL Cholesterol, Calculated 94 mg/dl VLDL Cholesterol, Calculated 14 mg/dl Cholesterol/HDL Ratio 3.8
--- NOTE | 2017-05-31 13:34 | Discharge Instructions ---
Discharge Instructions Date of Service May 31, 2017. Admission Reason for Admission: Chest Pain Discharge Discharge Diagnosis / Problem: Non- Cardiac Chest Pain Discharge Goals Goal(s): Decrease discomfort, Improve function, Increase independence, Improve disease control, Learn about illness, Diagnostic testing, Prevent Disease Progression Activity Recommendations Activity Limitations: resume your previous activity (As Tolerated.) Lifting Limitations: no more than 10 pounds Exercise/Sports Limitations: as tolerated May Resume Sexual Activity: when tolerated Shower/Bathe: no limitations Driving or Machine Use: resume 3 days after discharge . 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 Who to Call and When: Medical Emergencies: If at any time you feel your situation is an emergency, please call 911 immediately. . Non-Emergent Contact Non-Emergency issues call your: Primary Care Provider . . "Provider Documentation" section prepared by Stoney Lee. . VTE Core Measure Inpt VTE Proph given/why not?: Enoxaparin (Lovenox)SQ
[2017-05-31] MEDS ORDERED: ASPEC81 PO (13:35)
--- NOTE | 2017-05-31 13:38 | Discharge Summary ---
Discharge Summary Date of Service May 31, 2017. Discharge Summary Admission Date: May 30, 2017 at 14:47 Discharge Date: May 31, 2017 Discharge Disposition: Home Principal Diagnosis: Non-Cardiac Chest Pain Procedures: Stress Echocardiogram (NORMAL) Vaccinations: NONE Consultations: NONE Pending Studies/Follow-Up: NONE Medication Reconciliation New Medications: Aspirin (Aspirin EC Low Dose) 81 Mg Ectab 81 MG PO QAM, #100 TABS Continued Medications: Calcium/Vitamin D (Os-Jann 500 Plus D) Tab 1 TAB PO, TAB takes occasionally Cyanocobalamin (Vitamin B-12) 500 Mcg Tab 500 MCG PO 2XWK, TAB Multivitamin (Multivitamin) Tab 1 TAB PO DAILY, TAB Potassium Gluconate (Potassium Gluconate) 550 Mg Tab 1 TAB PO 2XWK Admission Information HPI (per Admitting provider): 51 year old female who presents to the ER with chest pain. Patient reports she first noticed the pain yesterday while a picnic. She reports the pain is located on the left side her chest and radiated into her left shoulder and down into the left arm. She describes the pain as a stabbing. She reports several episodes since then. She denies any specific causative or alleviating factors. She rates the pain #8/10 at its worst. Today while at work the pain returned and she had associated shortness of breath, lightheadedness, and diaphoresis. Patient received nitro and has had resolution of her pain. She has chronic low back pain which is unchanged. She reports she other pond has been feeling well recently. Has been tolerating ADLs without any problems. Climbs two flights of stairs regularly without difficulty. She denies abdominal pain, vomiting, and diarrhea. No fever or chills. She denies urinary symptoms. In the ER, initial troponin is negative and EKG does not show any acute ST changes. CTA chest is negative for PE. LLE US is negative for DVT. Physical Exam (per Admitting): General Appearance: no apparent distress Head: normocephalic Eyes: normal inspection ENT: hearing grossly normal Neck: supple, no JVD Respiratory/Chest: chest non-tender, lungs clear, normal breath sounds, no respiratory distress Cardiovascular: regular rate, rhythm, normal peripheral pulses, + pertinent finding (trace edema LLE) Abdomen/GI: normal bowel sounds, non tender, soft Extremities/Musculoskelatal: normal inspection, no calf tenderness Neurologic/Psych: no motor/sensory deficits, alert, normal mood/affect, oriented x 3 Skin: normal color, warm/dry Hospital Course Stress Echocardiogram (05/31/2017) STRESS STUDY: Normal exercise stress echocardiogram. No echocardiographic or ECG evidence of myocardial ischemia having achieved heart rate adequate for diagnostic purposes. CHEST PAIN : Resolved. Patient presenting with intermittent left sided chest pain radiating into left shoulder and arm since yesterday Risk factors: + family history, former smoker. -CTA chest negative for PE -Serial Troponin are negative, EKG without acute ST changes - s/p ASA for EMS, will continue with ASA 81mg daily -PRN nitro and EKG with further chest pain - Lipid panel shows HDL 39 & LDL 94. Hypokalemia: Resolved. DVT PROPHYLAXIS: SQ Lovenox Code Status: FULL CODE Disposition: Discharge home later today Follow up with PCP within 7 days after discharge. Total time spent on discharge = 34 minutes. This includes examination of the patient, discharge planning, medication reconciliation, and communication with other providers. Discharge Instructions Activity Recommendations Activity Limitations: resume your previous activity (As Tolerated.) Lifting Limitations: no more than 10 pounds Exercise/Sports Limitations: as tolerated May Resume Sexual Activity: when tolerated Shower/Bathe: no limitations Driving or Machine Use: resume 3 days after discharge . 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
[2017-05-31 15:13] VITALS: BP 118/79; PULSE 47; TEMP 36.5; O2SAT 100
== END 2017-05-31 15:28 | disposition home or self-care (01) ==
LOC: EDBD 09:11 → C.EDA 09:12 → C.MED 14:47 → ENRESERV 15:15
PROVIDERS: ADMIT Internal Medicine; ATTEND Emergency Medicine
DX: R07.9 Chest pain, unspecified (principal); Z87.891 Personal history of nicotine dependence; E87.6 Hypokalemia; Z98.84 Bariatric surgery status; Z82.49 Family history of ischemic heart disease and other diseases of the circulatory system; Z79.899 Other long term (current) drug therapy

== ENCOUNTER 2018-03-27 18:38 | Emergency (ER) | payer OTHER, BC ==
[~2018-03-27] VITALS: Ht 152.4 cm; Wt 71.9 kg
[~2018-03-27 18:38] MED LIST changes: -ALPR-411 PO; +ASPI-320 PO; -CITA40TA4 PO; +POTA550T4 PO
[2018-03-27 18:40] VITALS: TEMP 36.8; Ht 152.4 cm; Wt 71.9 kg
[2018-03-27] MEDS ORDERED: OXYCODONE/ACETAMINOPHEN 5-325 TAB PO STA (19:02)
--- NOTE | 2018-03-27 19:31 | EMERGENCY ROOM VISIT NOTE ---
History First contact with patient: 18:44 Chief Complaint: BACK INJURY Stated Complaint: BACK INJURY-WC History of Present Illness The patient is a 52 year old female who presents to the Emergency Room with complaints of back pain. The patient states that she was at work prior to arrival and rolled a patient. The patient started to fall and she grabbed the patient. She states that this caused significant low back pain. She then fell backward onto her back. She now reports a constant pain in her low back and rates the discomfort as 7/10. The pain radiates into her upper back. She states that the pain becomes a shooting pain with certain movements. The pain is better when she is leaning forward. She denies any history of low back pain. She denies any numbness or weakness. The pain does not radiate into the legs. She denies urinary symptoms or incontinence. Review of Systems A complete 10 point review of systems was reviewed with the patient with pertinent positives and negatives as per history of present illness. All else were negative. Past Medical/Surgical History Medical Problems: (1) Ulcer Surgical Problems: (1) H/O gastric bypass (2) Hx of cholecystectomy Family History Diabetes mellitus (DM) MOTHER FH: CAD (coronary artery disease) MOTHER (first [place] in her 20s) GRANDFATHER (NV in his 70s) UNCLE ( from [place] in his 50s) COUSIN ( from [place] in his 40s) FH: lupus MOTHER FH: suicide FATHER (at age 40, ? history of heart problems) Social History Smoking Status: Current Every Day Smoker Alcohol Use: occasionally Marital Status: other Occupation Status: employed Current/Historical Medications Scheduled Aspirin (Aspirin EC Low Dose), 81 MG PO QAM Cyanocobalamin (Vitamin B-12), 500 MCG PO 2XWK Multivitamin (Multivitamin), 1 TAB PO DAILY Potassium Gluconate (Potassium Gluconate), 1 TAB PO 2XWK Scheduled PRN Oxycodone/Acetaminophen 5MG/325MG (Percocet 5MG/325MG), 1 TAB PO Q4H PRN for Pain Miscellaneous Medications Calcium/Vitamin D (Os-Jann 500 Plus D), 1 TAB PO Physical Exam Vital Signs Date Time Temp Pulse Resp B/P (MAP) Pulse Ox O2 Delivery O2 Flow Rate FiO2 03/27/18 20:49 86 18 109/93 98 03/27/18 18:40 36.8 91 18 142/88 96 Room Air Physical Exam VITALS: Vitals are noted on the nurse's note and reviewed by myself. Vital signs stable. GENERAL: This is a 52-year-old female, in no acute distress, nondiaphoretic, well-developed well-nourished. SKIN: The skin was without erythema, edema, or bruising. HEART: Regular rate and rhythm without murmurs gallops or rubs. LUNGS: Clear to auscultation bilaterally without wheezes, rales or rhonchi. MUSCULOSKELETAL: Exaggerated pain response to light palpation of the low back. Full range of motion of bilateral lower extremities. Strength 5/5 bilaterally. NEURO: Patient was alert and oriented to person place and time. Patellar reflexes 2+ bilaterally. Distal sensation intact. Medical Decision & Procedures ER Provider Diagnostic Interpretation: LUMBAR SPINE 5 VIEWS CLINICAL HISTORY: Low back pain. FINDINGS: Five views of the lumbar spine are compared to study dated 05/30/2017. The skeletal structures are osteopenic. There is no radiographic evidence of fracture or malalignment. Vertebral body height and alignment are maintained throughout the lumbar spine. The transverse and spinous processes appear intact. There is no evidence of spondylolysis. Small anterior osteophytes are seen throughout. Mild facet arthropathy is noted in the lower lumbar region. The lumbar disc spaces appear maintained. Degenerative disc space narrowing and endplate sclerosis is seen at T11-T12. The visualized bony pelvis appears intact. No bowel obstruction is seen. Cholecystectomy clips are noted. Suture material projects over the left upper quadrant. IMPRESSION: 1. There is no evidence of fracture or malalignment involving the lumbar spine. 2. Osteopenia and mild spondylotic change as above. Medications Administered Medications (Trade) Dose Ordered Sig/Angela Route Start Time Stop Time Status Last Admin Dose Admin Oxycodone/ Acetaminophen (Percocet 5-325mg Tab) 0.5 tab NOW STAT PO 03/27/18 19:02 03/27/18 19:04 DC 03/27/18 19:12 0.5 TAB Medical Decision Differential diagnosis includes cauda equina syndrome, cord compression, disc herniation, muscle spasm, lumbar strain, epidural abscess, malignancy, transverse myelitis, urinary tract infection, colitis, diverticulitis, kidney stone, among others. The patient was evaluated as above. X-ray of the L-spine was obtained and read by radiology with no acute findings. Patient was given a short course of pain medication. Conservative measures were discussed. She was advised to follow- up with her Workmen's Compensation provider for further evaluation as needed. She verbalized understanding of my assessment and treatment plan and was discharged home in good condition. [facility] Drug Monitoring Program Search Results: patient reviewed within database, no issues identified Medication Reconcilliation Current Medication List: was personally reviewed by me Blood Pressure Screening Patient's blood pressure: Normal blood pressure Impression Primary Impression: Strain of lumbar region Departure Information Dispostion Home / Self-Care Condition GOOD Prescriptions Oxycodone/Acetaminophen 5MG/325MG (PERCOCET 5MG/325MG) Tab 1 TAB PO Q4H Y for Pain, #10 TAB For Initial Treatment Prov: Sarah Helton ., BRENDAN 03/27/18 Referrals Gibson Arredondo (PCP) Patient Instructions [facility] Additional Instructions You have been treated in the Emergency Department for Back Pain. You have received pain medicine in the emergency department which impairs your ability to operate a vehicle. It is illegal for you to drive after receiving these medicines. You have been prescribed Percocet to be used for pain control. This is a narcotic medication. You cannot drive or consume alcohol while on this medicine. This medicine should only be used for pain that cannot be controlled with [id number] pain medicines. For pain control, you can use the following geem-zzo-ekcinbr medicines (if >12 yo): - Regular strength (325mg/tab) Tylenol (acetaminophen) 2 tabs every 4-6 hours as needed. Do not exceed 12 tablets in a 24 hour period. Avoid taking more than 4 grams (4000 mg) of Tylenol per day. This includes any other sources of acetaminophen you may take on a regular basis. - Regular strength (200 mg/tab) Advil (ibuprofen) 1-2 tabs every 4-6 hours as needed. Do not exceed a dose of 3200 mg per day. If this is an acute injury, ice can be applied to the area of pain for the first 3 days to help decrease pain and inflammation. After the first 3 days, a heating pad can be used over the area for continued soothing relief. You should schedule a follow-up appointment in 2-3 days with your Primary Care Provider for further evaluation and treatment of your back pain. Return to the Emergency Department if your current symptoms worsen despite treatment course outlined above, or if you develop any of the following symptoms : intractable pain despite aforementioned treatment course, loss of control of your bowel or bladder, numbness or tingling in your groin, or development of a fever. Problem Qualifiers Primary Impression: Strain of lumbar region Encounter type: initial encounter Qualified Codes: S39.012A - Strain of muscle, fascia and tendon of lower back, initial encounter
--- NOTE | 2018-03-27 20:29 | DIAGNOSTIC IMAGING REPORT ---
LUMBAR SPINE 5 VIEWS CLINICAL HISTORY: Low back pain. FINDINGS: Five views of the lumbar spine are compared to study dated 05/30/2017. The skeletal structures are osteopenic. There is no radiographic evidence of fracture or malalignment. Vertebral body height and alignment are maintained throughout the lumbar spine. The transverse and spinous processes appear intact. There is no evidence of spondylolysis. Small anterior osteophytes are seen throughout. Mild facet arthropathy is noted in the lower lumbar region. The lumbar disc spaces appear maintained. Degenerative disc space narrowing and endplate sclerosis is seen at T11-T12. The visualized bony pelvis appears intact. No bowel obstruction is seen. Cholecystectomy clips are noted. Suture material projects over the left upper quadrant. IMPRESSION: 1. There is no evidence of fracture or malalignment involving the lumbar spine. 2. Osteopenia and mild spondylotic change as above. Dictated: 03/27/2018 8:10 PM Transcribed: 03/27/2018 8:29 PM Amy Electronically signed by: Laci Dodge M.D. 03/27/2018 8:38 PM Dictated Date/Time: 03/27/2018 8:10 PM
[2018-03-27] MEDS ORDERED: OXYC-57 PO (20:40)
[2018-03-27 20:49] VITALS: BP 109/93; PULSE 86; O2SAT 98
== END 2018-03-27 20:50 | disposition home or self-care (01) ==
LOC: C.EDB 18:39 → C.EDD 20:50
DX: S39.012A Strain of muscle, fascia and tendon of lower back, initial encounter (principal); X50.9XXA Other and unspecified overexertion or strenuous movements or postures, initial encounter; Y93.F9 Activity, other caregiving; Y99.0 Civilian activity done for income or pay; F17.210 Nicotine dependence, cigarettes, uncomplicated; Z98.84 Bariatric surgery status; Z79.899 Other long term (current) drug therapy; Z79.82 Long term (current) use of aspirin

== ENCOUNTER 2023-07-16 16:27 | Inpatient (IN) ==
--- NOTE | 2023-07-16 16:48 | ED Triage Note ---
Date of Service July 16, 2023 History of Present Illness This patient was briefly evaluated while in triage. An abbreviated physical exam was performed. This patient is a 57-year-old Female who presents to the ED for evaluation of right ankle pain for past 2 weeks. The area is "filling up with fluid and seeping" and has been red and swollen. Had surgery to this ankle over 20 years ago and had plates and pins placed. Had a fever last night of 101, and having chills off and on. Took Tylenol and ibuprofen today around 11am. Physical Exam CONSTITUTIONAL: No acute distress. Well appearing. RESPIRATORY: Clear to auscultation bilaterally. Equal expansion bilaterally. CARDIOVASCULAR: Regular rate and rhythm with no murmurs, rubs or gallops. Normal peripheral perfusion, 2+ DP pulse. GASTROINTESTINAL: Soft, nontender. MUSCULOSKELETAL: Swelling, redness, ttp over lateral right ankle. Fluctuance but no drainage noted. Full ROM of the ankle, increased pain inversion. NEUROLOGIC: Alert and oriented X 4 with normal affect. Initial orders for labs and / or imaging were placed and patient was placed in the waiting area until a bed is available. Please see further documentation for the full ED course.
[2023-07-16] MEDS ORDERED: SODIUM CHLORIDE 0.9% 1000ML 1,000 ML IV ONE ×2 (16:49→21:38)
--- NOTE | 2023-07-16 18:28 | XRay Report ---
RIGHT ANKLE 3 VIEWS CLINICAL HISTORY: Right ankle pain. Infection. FINDINGS: 3 views of the right ankle are obtained. No prior studies are available for comparison at t he time of dictation. The skeletal structures are osteopenic. No acute fracture is identified. There is no bony erosion or periostitis. There is chronic deformity of the distal tibia and fibula. 2 corti yanna lag screws transfix the medial malleolus. There has been buttress plate fixation of the distal fi bula. The orthopedic hardware appears intact. The ankle mortise is intact. There are small dorsal and plantar heel spurs. Soft tissue edema is present in the right lower extremity, greatest around the a nkle. IMPRESSION: 1. Soft tissue swelling with no acute bony abnormality identified. 2. Chronic posttraumatic and postsurgical findings as above. Electronically signed by: Laci Dodge M.D. 07/16/2023 6:27 PM
[2023-07-16 19:57] LABS: Basophils # (auto) 0.09 K/uL (0-0.2); Basophils % (auto) 0.9 %; Eosinophils # (auto) 0.07 K/uL (0-0.50); Eosinophils % (auto) 0.7 %; Hemoglobin 12.6 g/dl (12.0-16.0); Immature Granulocytes # (auto) 0.04 K/uL (0.01-0.20); Immature Granulocytes % (auto) 0.4 %; Lymphocytes # (auto) 2.89 K/uL (1.2-3.4); Lymphocytes % (auto) 27.7 %; Mean Corpuscular Hemoglobin 30.7 pg (25.0-34.0); Mean Corpuscular Hgb Conc 34.1 g/dL (32.0-36.0); Mean Platelet Volume 11.1 fL (9.4-12.4); Monocytes # (auto) 0.68 K/uL (0.11-0.59); Monocytes % (auto) 6.5 %; Neutrophils # (auto) 6.65 K/uL (1.40-6.50); Neutrophils % (auto) 63.8 %; Platelet Count 415 K/uL (130-400); RDW Coefficient of Variation 12.2 % (11.5-14.5); RDW Standard Deviation 40.5 fL (36.4-46.3); Red Blood Count 4.11 M/uL (4.20-5.40); White Blood Count 10.42 K/ul (4.8-10.8)
[2023-07-16 20:19] LABS: Albumin Globulin Ratio 1.4 (0.9-2); Albumin Level 4.3 gm/dl (3.4-5.0); BUN Creatinine Ratio 8.8 (10-20); Bilirubin,Total 0.6 mg/dl (0.2-1.0); C Reactive Protein 1.16 mg/dl (0-0.5); Calcium 9.2 mg/dl (8.6-10.3); Creatinine Clr Calc Pharmacy 89.5 ml/min; Est GFR (African American) 114.1 ml/min; Est GFR (Non-African American) 98.5 ml/min; Globulin 3.1 gm/dl (2.5-4.0); Potassium 3.6 mmol/L (3.5-5.1); Total Protein 7.4 gm/dl (6.0-8.3)
[2023-07-16] MEDS ORDERED: cefTRIAXone SODIUM 2,000 MG/70 ML BAG IV STA (21:30)
[2023-07-16] MEDS ORDERED: VANCOMYCIN CONSULT ACTIVE PRN (21:30)
[2023-07-16] MEDS ORDERED: VANCOMYCIN HCL 1,500 MG in SODIUM CHLORIDE 0.9% 500 ML IV ONE (21:30)
[2023-07-16] MEDS ORDERED: MoRPHine SULFATE 4 MG/ML 1 ML CARP\\VIAL IV STA (21:38)
--- NOTE | 2023-07-16 22:09 | History & Physical Report ---
Date of Service July 16, 2023 Assessment & Plan (1) Drainage from wound: (2) H/O gastric bypass: (3) Bipolar 1 disorder: (4) GERD (gastroesophageal reflux disease): Plan Pt is a 57 yo female with a past medical history of GERD, gastric bypass in 30s, and bipolar disorder who presents to the hospital on 07/16/23 for R ankle drainage. #R ankle wound with drainage - s/p ankle surgery in pt's 20s - swelling started 2 weeks ago, draining started 5 days ago, fever since last n ight - WBC 10.4, CRP 1.16, ESR 53, lactic acid pending - Ankle xray showed soft tissue swelling, CT pending - wound and blood cultures pending - tylenol 1000mg prn for pain/fever - pt currently on vanco, will start rocephin with first dose in the am #GERD - continue home omeprazole #Bipolar - continue home duloxetine and hydroxyzine VTE proph: pt at low risk Dispo: Medsurg/Obs Consults: - History of Present Illness Chief Complaint: R ankle wound with drainage Primary Care Provider: Norman Severino Pt is a 57 yo female with a past medical history of GERD, gastric bypass in 30s, and bipolar disorder who presents to the hospital on 07/16/23 for R ankle drainage. Pt states that she had ankle surgery in her 20s, then about 6-7 years ago she noticed that she would get lateral ankle swelling intermittently, which would go away on its own after a day or two. She states that about 2 weeks ago, it started to get swollen and help sore and looked a little red. She states about 5 days ago she felt a pop sensation and noted that there was now a hole that drained fluid from the wound. She states that then last night she noticed she had a 101F fever and chills. She states she works as a [employer] and that her coworkers convinced her to then come in and get evaluated. She also noted some R calf soreness and states she has been getting cramps lately. No further questions or complaints at this time. Social Hx: - Alcohol: denies - Smokin ppd for 43 years, current smoker - Other drug use: denies Allergies Allergy/AdvReac Type Severity Reaction Status Date / Time codeine AdvReac Intermediate N/V Verified 07/16/23 22:52 Home Medications Medication Instructions Recorded Confirmed Type cyanocobalamin (vitamin B-12) 1,000 mcg PO DAILY 11/13/18 07/16/23 History 1,000 mcg tablet (Vitamin B-12) duloxetine 30 mg capsule,delayed 30 mg PO AMPM 11/13/18 07/16/23 History release (Cymbalta) multivitamin 1 tab PO DAILY 11/13/18 07/16/23 History hydroxyzine HCl 25 mg tablet 25 mg PO HS PRN Anxiety 07/22/21 07/16/23 History acetaminophen 500 mg tablet 1,000 mg PO Q8 PRN Pain 07/16/23 07/16/23 History (Tylenol Extra Strength) ibuprofen 200 mg tablet 400 mg PO Q6H PRN Pain 07/16/23 07/16/23 History omeprazole 40 mg capsule,delayed 40 mg PO QAM 07/16/23 07/16/23 History release potassium 99 mg tablet 0 mg PO DAILY 07/16/23 07/16/23 History Past Med/Surg History Medical History GERD (gastroesophageal reflux disease) Surgical History Hx of cholecystectomy Family History Other FHx: heart disease FHx: hypertension Family history of diabetes mellitus Social History Smoking Status: Current every day smoker Tobacco Type: Cigarettes Second Hand Exposure: No; Do You Dip or Chew Tobacco: Yes; Hx Alcohol Use: Yes Hx Substance Use: No Preferred Language: Croatian Communication Ability: Effective Candy Catcher Required: No Beliefs That Will Affect Care: None Current Living Situation: Significant Other current occupational status: employed Other Information That Helps Us Care for You: No Feels Safe at Home: Yes Safety Concerns: Feels Safe At This Time Assistive Devices: None Review of Systems Review of Systems: Constitutional: +fever, +chills Cardio: denies chest pain, palpitations Resp: denies shortness of breath, GI: denies abdominal pain, nausea, vomiting, Physical Exam Physical Exam: General: Alert and oriented, no acute distress, HEENT: Normocephalic, moist oral mucosa, Cardio: Regular rate and rhythm, Resp: Lungs clear to auscultation b/l, GI: Soft and nontender, nondistended, bowel sounds active Extremities: lateral R ankle with 1 inch diameter area of swelling and mild erythema with notable small draining hole, currently draining serous fluid, no foul smell noted, no calf tenderness or calf erythema noted Skin: Warm, pink, dry, Psych: Mood-affect congruence. Results & Data Results & Data Vital Signs (Past 12 Hours) Vital Signs Temp Pulse Pulse Resp BP BP Pulse Ox 07/16/23 21:29 80 18 180/102 H 98 07/16/23 16:45 36.5 C 93 H 18 154/110 H 97 O2 Del Method 07/16/23 21:29 Room Air 07/16/23 16:45 Room Air Code Status & VTE Plan VTE Prophylaxis Plan VTE Prophylaxis will be ordered: No Reason for no VTE drug order: Treatment not indicated Supervising Physician Co-Signing Physician Notes Patient seen and examined, chart reviewed, case discussed with Dr. Brumfield and I agree with the assessment and plan as documented above. In brief, patient is a 57-year-old female presenting with swelling and drainage of her right ankle. Patient had an ankle surgery with hardware placement performed at [facility] when she was in her 20s. She has noted intermittent swelling for the last 6 to 7 days that has been self-limited. 2 weeks ago she noted progressive swelling of the right lateral ankle. Approxi-5 days ago she felt a pop and noted a hole that has been draining fluid. She notes that the fluid is sometimes clear but often has been purulent. The swelling and drainage persists. She does report a fever of 101 as well as some chills. No additional complaints at this time On physical exam she is afebrile, hypertensive on arrival which improved in the ER, otherwise hemodynamically stable, nontoxic in appearance Skinwarmth, redness and swelling of the right ankle at the lateral malleolus. Area of fluctuance with a small hole. Able to express a small amount of serous drainage. No purulence. No obvious tunneling of the wound. HEENTneck supple, moist mucous membranes Heart+ S1, S2, regular, no murmur/rub/gallops LungsCTA anteriorly Abdomensoft, nontender, nondistended Extremitiesexamination of right ankle as above. Otherwise extremities are warm, well-perfused with no clubbing, cyanosis or edema Labs and images reviewed Assessment/plan 57-year-old female presenting with swelling and area of fluctuance with drainage over her right anklelateral malleolus. Patient is status post ankle surgery approximately 20 years ago with hardware in place. She does have elevation of inflammatory markers CRP = 1.16, ESR = 53. X-ray obtained which reveals hardware in place with no evidence of osteomyelitis or loosening. Ultrasound with complex fluid collection possible developing abscess. Admit to medical Follow cultures obtained in the ERblood and wound Tylenol as needed for pain or fever Vancomycin and ceftriaxone Orthopedic surgery consultation appreciated regarding management of possible abscess. Per imaging at this point, it does not seem that the joint or bone is involved. Question infection of underlying hardware. Continue home medications as above Resident Activity Tracking Resident Involvement: Resident Care Provided Care Provided: Adult Hospital Medicine
[2023-07-16] MEDS ORDERED: ACETAMINOPHEN 500 MG TAB PO PRN (22:15)
--- NOTE | 2023-07-16 22:32 | Emergency Department Note ---
History of Present Illness General Chief complaint: Ankle Pain Stated complaint: RT ANKLE PAIN,SWELLING,POSSIBLE INFECTION Time Seen by Provider: 07/16/23 21:22 History of Present Illness Maximum Pain Intensity: 2 This 57-year-old female presents the ER complaining of right lower leg pain and swelling who had surgery on this ankle 20 years ago. Patient states there has been purulent material draining from the area. She has been squeezing at it. She has also had a fever. No history of osteomyelitis. Patient denies chest pain, dyspnea, cough, congestion, flulike illness. Tmax 101. She has been taking Tylenol. Home Medications Medication Instructions Recorded Confirmed Type cyanocobalamin (vitamin B-12) 1,000 mcg PO DAILY 11/13/18 07/16/23 History 1,000 mcg tablet (Vitamin B-12) duloxetine 30 mg capsule,delayed 30 mg PO AMPM 11/13/18 07/16/23 History release (Cymbalta) multivitamin 1 tab PO DAILY 11/13/18 07/16/23 History hydroxyzine HCl 25 mg tablet 25 mg PO HS PRN Anxiety 07/22/21 07/16/23 History acetaminophen 500 mg tablet 1,000 mg PO Q8 PRN Pain 07/16/23 07/16/23 History (Tylenol Extra Strength) ibuprofen 200 mg tablet 400 mg PO Q6H PRN Pain 07/16/23 07/16/23 History omeprazole 40 mg capsule,delayed 40 mg PO QAM 07/16/23 07/16/23 History release potassium 99 mg tablet 0 mg PO DAILY 07/16/23 07/16/23 History Allergies Allergy/AdvReac Type Severity Reaction Status Date / Time codeine AdvReac Intermediate N/V Verified 07/16/23 22:52 Past Med/Surg History Medical History GERD (gastroesophageal reflux disease) Surgical History Hx of cholecystectomy Family History Other FHx: heart disease FHx: hypertension Family history of diabetes mellitus Social History Smoking Status: Current every day smoker Tobacco Type: Cigarettes Second Hand Exposure: No; Do You Dip or Chew Tobacco: No; Hx Alcohol Use: No Hx Substance Use: No Preferred Language: Tajik Communication Ability: Effective Paving 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 Installer Required: No Beliefs That Will Affect Care: None Current Living Situation: Significant Other current occupational status: employed Feels Safe at Home: Yes Assistive Devices: None Review of Systems A total of 10 systems reviewed and were otherwise negative Physical Exam Vital Signs Vital Signs - 24 hr 07/16/23 16:45 07/16/23 21:29 Temperature 36.5 C Temperature Source Temporal Artery Scan Pulse Rate 93 H Pulse Rate [Finger] 80 Respiratory Rate 18 18 Respiratory Effort / Characteristics Non-Labored Respiratory Depth Normal Blood Pressure 154/110 H Blood Pressure [Left Arm] 180/102 H Blood Pressure Mean 124 Blood Pressure Mean [Left Arm] 128 Pulse Oximetry 97 98 Oxygen Delivery Method Room Air Room Air Sepsis Recent Fever Within 48 Hours Yes Sepsis New/Unexplained Change in Mental Status No Sepsis Action Taken by Nursing No Action Required VITALS: Vitals are noted on the nurse's note and reviewed by myself. Vital signs reviewed. GENERAL: Pleasant female, in no acute distress, nondiaphoretic, well-developed well-nourished. SKIN: Right lower leg over the ankle erythematous and edematous with minimal purulent drainage and wound culture taken and sent, the rest of the skin was without rashes, erythema, edema, or bruising. There is no tenting of the skin. Capillary reflex less than 2 seconds. HEAD: Normocephalic atraumatic. EARS: External auditory canals clear, EYES: Pupils equal round and reactive to light and accommodation. Conjunctivae without injection, sclerae without icterus. Extraocular movements intact. NOSE: Patent, turbinates without inflammation or discharge. MOUTH: Mucous membranes moist. Pharynx without erythema or exudate. Uvula midline. Airway patent. Tongue does not deviate. NECK: Supple without nuchal rigidity. No lymphadenopathy. No thyromegaly. Cervical spine is nontender. No JVD. HEART: Regular rate and rhythm LUNGS: Clear to auscultation bilaterally without wheezes, rales or rhonchi. No retractions or accessory muscle use. ABDOMEN: Positive bowel sounds x 4. Normal tympanic percussion. Soft, nontender, without masses or organomegaly. Lopez sign negative. No guarding or rebound tenderness. No CVA tenderness MUSCULOSKELETAL: No muscle atrophy noted. Right lower leg over the ankle erythematous and edematous with minimal purulent drainage and wound culture taken and sent NEURO: Patient was alert and oriented to person place and time. Normal sensation to light and sharp touch. No focal neurological deficits. Course Administered Medications Duloxetine HCl (Duloxetine Hcl 30 Mg Cap) 30 mg PO BID RONALD Stop: 08/15/23 23:14 Last Admin: 07/16/23 23:22 Dose: 30 mg Documented By: EFREM Discontinued Medications Acetaminophen (Acetaminophen 500 Mg Tab) 1,000 mg PO NOW STA Stop: 07/16/23 23:10 Last Admin: 07/16/23 23:21 Dose: 1,000 mg Documented By: EFERM Sodium Chloride (Nss 1000ml) 1,000 mls @ 999 mls/hr IV .Q1H1M ONE Stop: 07/16/23 17:49 Last Infusion: 07/17/23 00:22 Dose: 0 mls/hr Documented By: Admin: 07/16/23 23:22 Dose: 999 mls/hr Documented By: EFREM Ceftriaxone Sodium (Rocephin) 2,000 mg in 70 mls @ 140 mls/hr IV NOW STA Stop: 07/16/23 21:59 Last Infusion: 07/17/23 00:22 Dose: 0 mls/hr Documented By: Admin: 07/16/23 23:21 Dose: 140 mls/hr Documented By: EFREM Vancomycin HCl 1,500 mg/ (Sodium Chloride) 530 mls @ 200 mls/hr IV NOW ONE Stop: 07/17/23 00:08 Last Admin: 07/17/23 00:10 Dose: 200 mls/hr Documented By: EFREM Sodium Chloride (Nss 1000ml) 1,000 mls @ 999 mls/hr IV .Q1H1M ONE Stop: 07/16/23 22:38 Last Admin: 07/17/23 00:11 Dose: 999 mls/hr Documented By: EFREM Ioversol (Optiray 320 100ml) 92 ml IV ONCE ONE Stop: 07/16/23 23:07 Last Admin: 07/16/23 23:06 Dose: 92 ml Documented By: DEE Morphine Sulfate (Morphine Sulfate 4 Mg/Ml 1 Ml Carp\Vial) 4 mg IV NOW STA Stop: 07/16/23 21:39 Last Admin: 07/16/23 23:21 Dose: 4 mg Documented By: EFREM Medical Decision Making Medical Records Attestation: I reviewed the patient's medical records. Home Medications Current Medication List: was personally reviewed by me Laboratory Data Attestation: I reviewed the patient's lab results. 07/16/23 19:30 07/16/23 19:30 Lab Results 07/16/23 07/16/23 07/16/23 Range/Units 19:30 19:30 19:30 WBC 10.42 (4.8-10.8) K/ul RBC 4.11 L (4.20-5.40) M/uL Hgb 12.6 (12.0-16.0) g/dl Hct 37.0 (37.0-47.0) % MCV 90.0 (80.0-100.0) fL MCH 30.7 (25.0-34.0) pg MCHC 34.1 (32.0-36.0) g/dL RDW Std Deviation 40.5 (36.4-46.3) fL RDW Coeff of Rekha 12.2 (11.5-14.5) % Plt Count 415 H (130-400) K/uL MPV 11.1 (9.4-12.4) fL Immature Gran % (Auto) 0.4 % Neut % (Auto) 63.8 % Lymph % (Auto) 27.7 % Sevier % (Auto) 6.5 % Eos % (Auto) 0.7 % Baso % (Auto) 0.9 % Neut # (Auto) 6.65 H (1.40-6.50) K/uL Lymph # (Auto) 2.89 (1.2-3.4) K/uL Sevier # (Auto) 0.68 H (0.11-0.59) K/uL Eos # (Auto) 0.07 (0-0.50) K/uL Baso # (Auto) 0.09 (0-0.2) K/uL Immature Gran # (Auto) 0.04 (0.01-0.20) K/uL ESR 53 H (0-30) mm/hr Sodium 138 (136-145) mmol/L Potassium 3.6 (3.5-5.1) mmol/L Chloride 105 (98-107) mmol/L Carbon Dioxide 26 (21-32) mmol/L Anion Gap 7 (3-11) BUN 6 (6-23) mg/dl Creatinine 0.68 (0.6-1.2) mg/dl Est Cr Clr Drug Dosing 89.5 ml/min Est GFR ( Amer) 114.1 ml/min Est GFR (Non-Af Amer) 98.5 ml/min BUN/Creatinine Ratio 8.8 L (10-20) Glucose 91 (70-99(Fasting)) mg/dl Lactate (0.4-2.0) mmol/L Calcium 9.2 (8.6-10.3) mg/dl Total Bilirubin 0.6 (0.2-1.0) mg/dl AST 20 (13-39) U/L ALT 16 (7-52) U/L Alkaline Phosphatase 104 (34-104) U/L C-Reactive Protein 1.16 H (0-0.5) mg/dl Total Protein 7.4 (6.0-8.3) gm/dl Albumin 4.3 (3.4-5.0) gm/dl Globulin 3.1 (2.5-4.0) gm/dl Albumin/Globulin Ratio 1.4 (0.9-2) Procalcitonin (0-0.5) ng/ml 07/16/23 07/16/23 Range/Units 19:30 21:50 WBC (4.8-10.8) K/ul RBC (4.20-5.40) M/uL Hgb (12.0-16.0) g/dl Hct (37.0-47.0) % MCV (80.0-100.0) fL MCH (25.0-34.0) pg MCHC (32.0-36.0) g/dL RDW Std Deviation (36.4-46.3) fL RDW Coeff of Rekha (11.5-14.5) % Plt Count (130-400) K/uL MPV (9.4-12.4) fL Immature Gran % (Auto) % Neut % (Auto) % Lymph % (Auto) % Sevier % (Auto) % Eos % (Auto) % Baso % (Auto) % Neut # (Auto) (1.40-6.50) K/uL Lymph # (Auto) (1.2-3.4) K/uL Sevier # (Auto) (0.11-0.59) K/uL Eos # (Auto) (0-0.50) K/uL Baso # (Auto) (0-0.2) K/uL Immature Gran # (Auto) (0.01-0.20) K/uL ESR (0-30) mm/hr Sodium (136-145) mmol/L Potassium (3.5-5.1) mmol/L Chloride (98-107) mmol/L Carbon Dioxide (21-32) mmol/L Anion Gap (3-11) BUN (6-23) mg/dl Creatinine (0.6-1.2) mg/dl Est Cr Clr Drug Dosing ml/min Est GFR ( Amer) ml/min Est GFR (Non-Af Amer) ml/min BUN/Creatinine Ratio (10-20) Glucose (70-99(Fasting)) mg/dl Lactate 0.8 (0.4-2.0) mmol/L Calcium (8.6-10.3) mg/dl Total Bilirubin (0.2-1.0) mg/dl AST (13-39) U/L ALT (7-52) U/L Alkaline Phosphatase (34-104) U/L C-Reactive Protein (0-0.5) mg/dl Total Protein (6.0-8.3) gm/dl Albumin (3.4-5.0) gm/dl Globulin (2.5-4.0) gm/dl Albumin/Globulin Ratio (0.9-2) Procalcitonin < 0.05 (0-0.5) ng/ml Imaging Data Attestation: I personally reviewed and interpreted this imaging study as follows: Radiologist's Impression: Ankle X-Ray 07/16/23 16:50 RIGHT ANKLE 3 VIEWS CLINICAL HISTORY: Right ankle pain. Infection. FINDINGS: 3 views of the right ankle are obtained. No prior studies are available for comparison at the time of dictation. The skeletal structures are osteopenic. No acute fracture is identified. There is no bony erosion or periostitis. There is chronic deformity of the distal tibia and fibula. 2 cortical lag screws transfix the medial malleolus. There has been buttress plate fixation of the distal fibula. The orthopedic hardware appears intact. The ankle mortise is intact. There are small dorsal and plantar heel spurs. Soft tissue edema is present in the right lower extremity, greatest around the ankle. IMPRESSION: 1. Soft tissue swelling with no acute bony abnormality identified. 2. Chronic posttraumatic and postsurgical findings as above. Electronically signed by: Laci Dodge M.D. 07/16/2023 6:[address] 07/16/23 21:30 Exam(s): CT RIGHT ANKLE With Contrast IV Amt: 92ML OPTIRAY 320 EXAM: CT Right Lower Extremity With Intravenous Contrast, Ankle CLINICAL HISTORY: Reason for exam: ? abscess/OM. TECHNIQUE: Axial computed tomography images of the right ankle with intravenous contrast. CTDI is 15.57 mGy and DLP is 364.37 mGy-cm. Automated exposure control was utilized for the study. A dose lowering technique was utilized adhering to the principles of ALARA. CONTRAST: Patient received 92ML OPTIRAY 320 of IV contrast COMPARISON: 07/16/2023. FINDINGS: Bones/joints: Status post ORIF surgery with fixation plate along the distal fibula. Fixation screws through the medial malleolus. The distal tibia, fibula, talus and calcaneus are otherwise unremarkable. Unremarkable remainder of the tarsal bones. Soft tissues: There is focal soft tissue swelling over the lateral malleolus otherwise incompletely visualized area are due to beam hardening artifact related to metallic hardware. Diffuse edema in the distal calf and ankle. IMPRESSION: 1. No bony destructive changes to suggest bony lesion or osteomyelitis. Note to be made that osteomyelitis cannot be excluded based on negative CT findings. If this represents a persistent clinical concern, recommend dedicated MRI or bone scan for follow-up. 2. Postoperative changes through the distal tibia and fibula with normal alignment. No acute fracture. 3. Diffuse edema as described more severe over the lateral malleolus. Electronically signed by: Monica Rice MD 07/16/23 23:57 PM Venous Doppler Study 07/16/23 21:30 Exam(s): US VENOUS RIGHT LOWER EXTREMITY EXAM: US Duplex Right Lower Extremity Veins CLINICAL HISTORY: Reason for exam: pain/swelling. TECHNIQUE: Real-time duplex ultrasound scan of the right lower extremity veins integrating B-mode two-dimensional vascular structure, Doppler spectral analysis, color flow Doppler imaging and compression. COMPARISON: None. FINDINGS: Deep veins: Unremarkable. No DVT in the visualized common femoral, femoral, proximal deep femoral or popliteal veins. The veins demonstrate normal color flow, are normally compressible, with normal phasic flow and/or augmentation response. Superficial veins: Unremarkable. No thrombus in the visualized great saphenous vein. Soft tissues: Nonspecific edema in the calf and ankle region. Hypoechoic area along the lateral aspect of the ankle which could represent complex fluid collection such as hematoma versus infectious process. Increased vascularity within and surrounding the collection is seen favoring infectious process/phlegmonous change with possible early abscess. This measures 2.1 x 1.0 x 2.3 cm. No popliteal cyst. IMPRESSION: 1. No ultrasonographic evidence of deep venous thrombosis involving the right lower extremity. 2. Edema more so in the ankle region with complex fluid collection along the lateral ankle suggestive of phlegmonous change versus early abscess formation. Clinical correlation recommended. Electronically signed by: Monica Rice MD 07/16/23 23:53 PM MDM Narrative Prior records reviewed and summarized as above. Triage Nursing notes reviewed. Additional history obtained from nursing. The patient's history was concerning for swelling and redness of the skin. Differential diagnosis: Etiologies such as septic joint, osteomyelitis, Lyme's, cellulitis, abscess, MRSA infection, DVT, necrotizing fasciitis, dermatitis, drug eruption, as well as others were entertained.. Physical examination: As above ER treatment provided: Rocephin and vancomycin ordered On reassessment the patient felt better. Diagnostics interpreted by me: The labs Independently Interpreted by myself revealed elevated inflammatory markers. Wound culture pending. No worrisome leukocytosis Negative lactate, negative procalcitonin Imaging studies: Ankle x-ray with no fracture but soft tissue swelling per my independent interpretation Ultrasound was reviewed and CT was reviewed and read as above by radiology. Consultation: A consultation was placed with the hospitalist. The case was discussed and diagnostics were reviewed. The patient was evaluated in the ER for further treatment. This appears to be right lower leg cellulitis with concerns for possible developing osteomyelitis or septic joint. Patient was started on IV antibiotics. Medicine was consulted and the case is discussed. Patient be admitted to the medical team. There is delay due to prolonged wait time in the ER. Protocols were done on this patient by nursing. I did add in antibiotics and advanced imaging once I did evaluate the patient By the evaluation outlined above emergent etiologies such as necrotizing fasciitis, DVT, as well as others were deemed relatively unlikely. The pt informed about the findings as listed above. All questions were answered and pleased with the treatment. The chart was completed utilizing [employer] Speech voice recognition software. Grammatical errors, random word insertions, pronoun errors, and incomplete sentences are an occassional consequence of this system due to software limitations, ambient noise, and hardware issues. Any formal questions or concerns about the content, text, or information contained within the body of this dictation should be directly addressed to the physician environmental engineering assistant for clarification. Impression & Plan Cellulitis of right leg, Fever Discharge Plan Visit Data Chief Complaint: Ankle Pain Stated Complaint: RT ANKLE PAIN,SWELLING,POSSIBLE INFECTION ED Provider: Maddy Bai ED Midlevel Provider: Keshia Carey Discharge Problem: Cellulitis of right leg, Fever Patient Disposition: Admitted As Inpatient Condition: Good Discharge Instructions Interventions: ED Discharge Assessment Last Done: 07/16/23 22:28
[2023-07-16] MEDS ORDERED: OPTIRAY 320 100ml IV ONE (23:06)
[2023-07-16] MEDS ORDERED: ACETAMINOPHEN 500 MG TAB PO STA (23:09)
[2023-07-16] MEDS: DULoxetine HCL 30 MG CAP PO SCH (23:22)
--- NOTE | 2023-07-16 23:54 | Ultrasound Report ---
Exam(s): US VENOUS RIGHT LOWER EXTREMITY EXAM: US Duplex Right Lower Extremity Veins CLINICAL HISTORY: Reason for exam: pain/swelling. TECHNIQUE: Real-time duplex ultrasound scan of the right lower extremity veins integrating B-mode two-dimensional vascular structure, Doppler spectral analysis, color flow Doppler imaging and compression. COMPARISON: None. FINDINGS: Deep veins: Unremarkable. No DVT in the visualized common femoral, femoral, proximal deep femoral or popliteal veins. The veins demonstrate normal color flow, are normally compressible, with normal phasic flow and/or augmentation response. Superficial veins: Unremarkable. No thrombus in the visualized great saphenous vein. Soft tissues: Nonspecific edema in the calf and ankle region. Hypoechoic area along the lateral aspect of the ankle which could represent complex fluid collection such as hematoma versus infectious process. Increased vascularity within and surrounding the collection is seen favoring infectious process/phlegmonous change with possible early abscess. This measures 2.1 x 1.0 x 2.3 cm. No popliteal cyst. IMPRESSION: 1. No ultrasonographic evidence of deep venous thrombosis involving the right lower extremity. 2. Edema more so in the ankle region with complex fluid collection along the lateral ankle suggestive of phlegmonous change versus early abscess formation. Clinical correlation recommended. Electronically signed by: Monica Rice MD 07/16/23 23:53 PM
--- NOTE | 2023-07-16 23:58 | CT Scan Report ---
Exam(s): CT RIGHT ANKLE With Contrast IV Amt: 92ML OPTIRAY 320 EXAM: CT Right Lower Extremity With Intravenous Contrast, Ankle CLINICAL HISTORY: Reason for exam: ? abscess/OM. TECHNIQUE: Axial computed tomography images of the right ankle with intravenous contrast. CTDI is 15.57 mGy and DLP is 364.37 mGy-cm. Automated exposure control was utilized for the study. A dose lowering technique was utilized adhering to the principles of ALARA. CONTRAST: Patient received 92ML OPTIRAY 320 of IV contrast COMPARISON: 07/16/2023. FINDINGS: Bones/joints: Status post ORIF surgery with fixation plate along the distal fibula. Fixation screws through the medial malleolus. The distal tibia, fibula, talus and calcaneus are otherwise unremarkable. Unremarkable remainder of the tarsal bones. Soft tissues: There is focal soft tissue swelling over the lateral malleolus otherwise incompletely visualized area are due to beam hardening artifact related to metallic hardware. Diffuse edema in the distal calf and ankle. IMPRESSION: 1. No bony destructive changes to suggest bony lesion or osteomyelitis. Note to be made that osteomyelitis cannot be excluded based on negative CT findings. If this represents a persistent clinical concern, recommend dedicated MRI or bone scan for follow-up. 2. Postoperative changes through the distal tibia and fibula with normal alignment. No acute fracture. 3. Diffuse edema as described more severe over the lateral malleolus. Electronically signed by: Monica Rice MD 07/16/23 23:57 PM
[2023-07-17] MEDS ORDERED: MoRPHine SULFATE 2 MG/ML CARP IV STA (03:16)
[2023-07-17] MEDS: VANCOMYCIN HCL 1,000 MG in SODIUM CHLORIDE 0.9% 250 ML IV SCH ×2 (06:41→18:25)
--- NOTE | 2023-07-17 08:20 | Hospitalist Progress Note ---
Date of Service July 17, 2023 Assessment & Plan (1) Drainage from wound: Plan: #R ankle wound with drainage, previous hardware s/p ankle surgery in pt's 20s - swelling started 2 weeks ago, draining started 5 days ago, fever since one day prior to admission - - Ankle xray showed soft tissue swelling, doppler u/s suggests abscess 2.1x1.0x2.[address] does not confirm osteomyelitis - wound and blood cultures pending - tylenol 1000mg prn for pain/fever - Vancomycin and Rocephin ortho is seeing and will possibly go to surgery 07/17, pt has low cardiac risk, does not have anginal or HF symptoms by history (2) H/O gastric bypass: Plan: history of surery in her 30"s (3) Bipolar 1 disorder: Plan: continue home duloxetine and hydroxyzine (4) GERD (gastroesophageal reflux disease): Admission and Anticipated Discharge Date Admission Date: July 16, 2023 Subjective Patient is pleasant she continues to have this comfort to her right lateral ankle. She states that she had a knee injury and was walking with an unusual gait and this may have caused her ankle to rub on her shoe in a different way. She has an old repair of this ankle with internal hardware present. There is suggestion of an abscess on ultrasound but no suggestion of osteomyelitis on CT. Orthopedics was consulted with regard to foot and ankle for operative debridement Physical Exam Physical Exam: Awake alert appropriate. Patient denies any recent anginal symptoms or heart failure symptoms. Her cardiac exam is regular, she has no JVD Lungs are clear without wheezes or crackles Abdomen is NABS and soft Her right ankle has some baseline deformity where it is increasingly supinated there is a scar at the lateral malleolus with erythematous soft area there it is not draining at this time but appears to be likely the nidus of the abscess. Results & Data Results & Data Vital Signs (Past 12 Hours) Vital Signs Temp Pulse Resp BP Pulse Ox O2 Del Method 07/17/23 04:53 97.7 F 87 18 144/91 H 97 07/17/23 03:44 82 18 144/91 H 97 Room Air 07/16/23 23:25 86 18 139/97 100 Room Air 07/16/23 21:29 80 18 180/102 H 98 Room Air Laboratory Results Reviewed CBC reviewed chemistry PG Care Time/CCT Total # of Minutes Spent Total Time Spent with Patient: Total time spent is greater than 50% in coordination of care (as documented) at patient's floor/unit and/or counseling patient: Coding Level of Care Code 86808 SUB INP/OBS CARE 350MIN Diagnoses Drainage from wound L24.A9 H/O gastric bypass Z98.84 Bipolar 1 disorder F31.9 GERD (gastroesophageal reflux disease) K21.9
[2023-07-17] MEDS: DULoxetine HCL 30 MG CAP PO SCH ×2 (09:00→20:02)
[2023-07-17] MEDS: PANTOprazole 40 MG TAB PO SCH (09:00)
[2023-07-17] MEDS ORDERED: DULoxetine HCL 30 MG CAP PO SCH (09:00)
--- NOTE | 2023-07-17 10:19 | Pharmacy Report ---
Pharmacy PK ABX Note - Date of Service July 17, 2023 - Assessment and Plan Assessment 57 year old F receiving Vancomycin and Ceftriaxone for treatment of R ankle wound with drainage. * Day #1 of antimicrobial therapy. Previous surgery on R ankle ~30 years ago. * Afebrile. No leukocytosis. SCr at baseline. Procal and lactate negative. ESR/CRP mildly elevated. * R ankle and blood cultures are pending. Plan Vancomycin * Loading dose: 1500 mg IV x 1 * Maintenance dose: 1000 mg IV every 12 hours * Regimen is predicted to achieve target AUC/ELDER of 400-600 mg/L.hr * Random level ordered for: 07/19/23 Ceftriaxone * 2000 mg IV every 24 hours Pharmacy will continue to follow and will adjust dose/frequency as necessary. Thank you. Pharmacy has transitioned to AUC monitoring for vancomycin. AUC/ELDER is the preferred PK/PD target and is associated with decreased risk of nephrotoxicity compared to traditional trough targets.
--- NOTE | 2023-07-17 17:08 | Orthopedic Consultation ---
Date of Consultation July 17, 2023 Assessment & Plan (1) Cutaneous abscess of right ankle: Recommendation: Patient will be scheduled for irrigation debridement with evacuation abscess right ankle. Removal infected orthopedic hardware medial and lateral ankle. Continuation with IV antibiotics with likely eventual transition to oral antibiotics based upon clinical findings at the time of surgery. N.p.o. after midnight. VTE prophylaxis with ASA 81 mg 1 p.o. daily x4 weeks. Begin postop day #1. Will follow with you. Thank you for the opportunity to participate in the care of this patient. [facility] (2) Infected orthopedic implant: (3) Cellulitis of right lower leg: History of Present Illness Reason for Consultation: Pain, redness, swelling with recurrent abscess and drainage over the past 3 to 5 years. Prior surgery performed by Yomaira Cooper DO in [place] approximately 20 years ago. Attending Physician: John Paul Manriquez MD History of Present Illness 57-year-old female seen at the request of the hospitalist service and Dr. Manriquez. Regarding the above complaint. Patient has had pain, swelling, fevers and chills with recurrent drainage from the lateral ankle. 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 Allergies Allergy/AdvReac Type Severity Reaction Status Date / Time codeine AdvReac Intermediate N/V Verified 07/16/23 22:52 Home Medications Medication Instructions Recorded Confirmed Type cyanocobalamin (vitamin B-12) 1,000 mcg PO DAILY 11/13/18 07/16/23 History 1,000 mcg tablet (Vitamin B-12) duloxetine 30 mg capsule,delayed 30 mg PO AMPM 11/13/18 07/16/23 History release (Cymbalta) multivitamin 1 tab PO DAILY 11/13/18 07/16/23 History hydroxyzine HCl 25 mg tablet 25 mg PO HS PRN Anxiety 07/22/21 07/16/23 History acetaminophen 500 mg tablet 1,000 mg PO Q8 PRN Pain 07/16/23 07/16/23 History (Tylenol Extra Strength) ibuprofen 200 mg tablet 400 mg PO Q6H PRN Pain 07/16/23 07/16/23 History omeprazole 40 mg capsule,delayed 40 mg PO QAM 07/16/23 07/16/23 History release potassium 99 mg tablet 0 mg PO DAILY 07/16/23 07/16/23 History Patient History Medical History GERD (gastroesophageal reflux disease) Surgical History Hx of cholecystectomy Family History Other FHx: heart disease FHx: hypertension Family history of diabetes mellitus Social History Smoking Status: Current every day smoker Tobacco Type: Cigarettes Second Hand Exposure: No; Do You Dip or Chew Tobacco: Yes; Hx Alcohol Use: Yes Hx Substance Use: No Preferred Language: Georgian Communication Ability: Effective Office Services Representative Required: No Beliefs That Will Affect Care: None Current Living Situation: Significant Other current occupational status: employed Other Information That Helps Us Care for You: No Feels Safe at Home: Yes Safety Concerns: Feels Safe At This Time Assistive Devices: None Physical Exam Constitutional: WD/WN, vitals as above Eyes: PERRL, conjunctivae normal, anicteric sclerae ENMT: external ear and nose normal, oropharynx normal Neck: trachea midline, no thyromegaly Respiratory: normal respiratory effort, lungs clear to auscultation Cardiovascular: RRR, no murmur, no edema Gastrointestinal (Abdomen): normal bowel sounds, soft, nontender, no hepatosplenomegaly Musculoskeletal: Right ankle with small sinus tract and drainage lateral malleolus. Fluctuance and abscess lateral ankle. Erythema lateral ankle with possible streaking. Edema right lower extremity 2+/4 compared to normal left lower extremity. Pain with active and passive range of motion right ankle localized to the lateral malleolus and anterior lateral ankle. Pedal pulses 2/4 bilateral. Feet are warm. Normal hair growth. Skin: Intact grossly however lateral right ankle with abscess, pinpoint drainage over the lateral malleolus, thickened skin and healed surgical scars medial and lateral right ankle. Neurologic: PERRL, EOMI, accommodation nl, no face palsy, no dysarthria Psychiatric: A+Ox3, euthymic affect Lymphatic: no cervical or axillary lymphadenopathy Results & Data Vital Signs (Past 12 Hours) Vital Signs Temp Pulse Resp BP Pulse Ox O2 Del Method 08/22/23 15:40 Room Air 07/17/23 15:25 36.7 C 77 16 154/85 H 98 Room Air 07/17/23 14:56 36.9 C 79 18 144/79 H 97 Room Air 07/17/23 13:19 78 18 140/95 140 H Room Air 07/17/23 10:31 88 20 138/88 97 Room Air 07/17/23 08:18 82 18 138/88 97 Room Air Diagnostic Findings Radiographs, ultrasound and CT scan reviewed denoting abscess lateral malleolus. Stable appearing metallic hardware medial and lateral ankle with healed fractures. No obvious features to suggest osteomyelitis.
--- NOTE | 2023-07-17 17:20 | Electrocardiogram Report ---
Test Reason : Blood Pressure : / mmHG Vent. Rate : 087 BPM Atrial Rate : 087 BPM P-R Int : 128 ms QRS Dur : 074 ms QT Int : 366 ms P-R-T Axes : 084 033 020 degrees QTc Int : 440 ms Normal sinus rhythm Cannot rule out Anterior infarct , age undetermined Abnormal ECG When compared with ECG of 08-MAY-2022 19:05, No significant change was found Confirmed by Tico Isidro ([id number]) on 07/17/2023 5:20:13 PM Referred By: REFERRED SELF Confirmed By:Tico Isidro
--- NOTE | 2023-07-17 18:35 | XRay Report ---
XR chest 1V portable CLINICAL HISTORY: pre op TECHNIQUE: Single frontal radiograph of the chest was obtained. Comparison: Comparison is made to chest radiograph 02/19/2021 FINDINGS: No lines and tubes are seen. The cardiomediastinal silhouette is normal. The lungs are clear. No evid ence of pleural effusion or pneumothorax. IMPRESSION: No acute chest disease. ACT 112: Negative or not required by law. Electronically signed by: Ki Worthy M.D. 07/17/2023 6:34 PM
--- NOTE | 2023-07-17 19:33 | Billing Data ---
Date of Service July 16, 2023 Coding Level of Care Code 83974 INT INP/OBS CARE
[2023-07-17] MEDS: hydrOXYzine HCl 25 MG TAB PO SCH (20:02)
[2023-07-17] MEDS: cefTRIAXone SODIUM 2,000 MG in DEXTROSE 5% 50 ML IV SCH (21:14)
[2023-07-18] MEDS: VANCOMYCIN HCL 1,000 MG in SODIUM CHLORIDE 0.9% 250 ML IV SCH ×2 (05:31→17:33)
[2023-07-18 08:44] LABS: Creatinine Clr Calc Pharmacy 95.1 ml/min; Est GFR (African American) 115.8 ml/min; Est GFR (Non-African American) 99.9 ml/min
[2023-07-18] MEDS: DULoxetine HCL 30 MG CAP PO SCH ×2 (08:54→20:31)
[2023-07-18] MEDS: PANTOprazole 40 MG TAB PO SCH (08:54)
--- NOTE | 2023-07-18 09:16 | Anesthesiology Consultation ---
Date of Service July 18, 2023 Assessment & Plan (1) Encounter for pre-operative examination: Chart Review Chart Review: Acceptable Risk for Surgery and Patient NOT seen in Pre Admission Testing Consults Requested none History Surgery Operation Date: 07/18/23 07:00 Proposed Procedures p Right Ankle Incision and Drainage - Konrad Andrew DO s Removal Hardware Medial and Lateral - Konrad Andrew DO Height/Weight Height: 5 ft Weight: 85.7 kg Allergies Allergy/AdvReac Type Severity Reaction Status Date / Time codeine AdvReac Intermediate N/V Verified 07/16/23 22:52 Medications Home Medications Medication Instructions Recorded Confirmed Last Taken cyanocobalamin (vitamin B-12) 1,000 mcg PO DAILY 11/13/18 07/16/23 05/08/22 1,000 mcg tablet (Vitamin B-12) duloxetine 30 mg capsule,delayed 30 mg PO AMPM 11/13/18 07/16/23 05/14/22 release (Cymbalta) multivitamin 1 tab PO DAILY 11/13/18 07/16/23 05/14/22 hydroxyzine HCl 25 mg tablet 25 mg PO HS PRN Anxiety 07/22/21 07/16/23 05/13/22 acetaminophen 500 mg tablet 1,000 mg PO Q8 PRN Pain 07/16/23 07/16/23 Unknown (Tylenol Extra Strength) ibuprofen 200 mg tablet 400 mg PO Q6H PRN Pain 07/16/23 07/16/23 Unknown omeprazole 40 mg capsule,delayed 40 mg PO QAM 07/16/23 07/16/23 Unknown release potassium 99 mg tablet 0 mg PO DAILY 07/16/23 07/16/23 Unknown Active Medications Generic Name Dose Route Start Last Admin Trade Name Freq PRN Reason Stop Dose Admin Acetaminophen 1,000 mg 07/16/23 22:15 07/17/23 15:57 Acetaminophen 500 Mg Tab PO 08/15/23 22:14 1,000 mg Q8H PRN Administration Pain or Fever Duloxetine HCl 30 mg 07/16/23 23:15 07/18/23 08:54 Duloxetine Hcl 30 Mg Cap PO 08/15/23 23:14 30 mg BID RONALD Administration Hydroxyzine HCl 25 mg 07/17/23 21:00 07/17/23 20:02 Hydroxyzine Hcl 25 Mg Tab PO 08/16/23 20:59 25 mg HS RONALD Administration Ceftriaxone Sodium 2,000 mg/ 70 mls @ 100 mls/hr 07/17/23 22:00 07/17/23 22:08 Dextrose IV 07/24/23 21:59 Infused Q24H RONALD Infusion Protocol Vancomycin HCl 1,000 mg/ 270 mls @ 200 mls/hr 07/17/23 06:00 07/18/23 07:11 Sodium Chloride IV 07/24/23 05:59 Infused Q12H RONALD Infusion Pantoprazole Sodium 40 mg 07/17/23 09:00 07/18/23 08:54 Pantoprazole 40 Mg Tab PO 08/16/23 08:59 40 mg DAILY RONALD Administration Past Medical History Medical History (Updated 07/18/23 @ 10:17 by Goyo Arrington MD) Encounter for pre-operative examination GERD (gastroesophageal reflux disease) smoking Exercise / Class Metabolic Activity II 4-5 Yardwork/Stairs/Walk up hill Past Family History Family History Other FHx: heart disease FHx: hypertension Family history of diabetes mellitus Past Surgical History Surgical History Hx of cholecystectomy Past Anesthesia History No Hx of Anesthesia Complications and No Family Hx of Anesthesia Complications Social History Smoking Status: Current every day smoker tobacco type: cigarettes Do You Dip or Chew Tobacco: Yes Hx Alcohol Use: Yes alcohol intake frequency: holidays/special occasions only Hx Substance Use: No substance use type: does not use Physical Exam Vital Signs Last Vital Signs Temp 36.9 C 07/18/23 09:55 Pulse 77 07/18/23 09:55 Resp 20 07/18/23 09:55 BP 135/80 07/18/23 09:55 Pulse Ox 94 07/18/23 09:55 O2 Del Method Room Air 07/18/23 09:55 Testing Laboratory Results 07/16/23 19:30 07/18/23 07:43 07/16/23 22:24 Aerobic Blood Culture - Preliminary Blood No growth in Aerobic bottle after 24 hours. Anaerobic Blood Culture - Preliminary No growth in Anaerobic bottle after 24 hours. 07/16/23 21:50 Aerobic Blood Culture - Preliminary Blood No growth in Aerobic bottle after 24 hours. Anaerobic Blood Culture - Preliminary No growth in Anaerobic bottle after 24 hours. 07/16/23 21:36 Gram Stain - Final Ankle Wound Culture - Preliminary Pin-point growth present, reincubating. 07/18/23 09:35 POC Ur Test Pending Electrocardiogram Date: 07/16/23 DICTATED BY:Tico Isidro MD Test Reason : Blood Pressure : / mmHG Vent. Rate : 087 BPM Atrial Rate : 087 BPM P-R Int : 128 ms QRS Dur : 074 ms QT Int : 366 ms P-R-T Axes : 084 033 020 degrees QTc Int : 440 ms Normal sinus rhythm Cannot rule out Anterior infarct , age undetermined Abnormal ECG When compared with ECG of 08-MAY-2022 19:05, No significant change was found Confirmed by Tico Isidro ([id number]) on 07/17/2023 5:20:13 PM
[2023-07-18] MEDS ORDERED: VANCOMYCIN HCL 1000MG/20ML VIAL ONE (09:51)
[2023-07-18] MEDS ORDERED: GENTAMICIN SULFATE 40 MG/ML 2 ML VIAL ONE (09:53)
[2023-07-18] MEDS ORDERED: ceFAZolin 330 MG/ML 1 GM VIAL ONE ×2 (09:54→10:50)
[2023-07-18] MEDS ORDERED: fentaNYL citrate PF 100 MCG/2 ML VIAL IV PRN (10:18)
[2023-07-18] MEDS ORDERED: PROMETHAZINE HCL 6.25 MG in SODIUM CHLORIDE 0.9% 50 ML IV PRN (10:18)
[2023-07-18] MEDS ORDERED: ePHEDrine sulfate 50 MG/ML AMP IV PRN (10:18)
[2023-07-18] MEDS ORDERED: HYDROmorphone INJ 1 MG/ML SYRINGE IV PRN (10:18)
[2023-07-18] MEDS ORDERED: ONDANSETRON INJ 2 MG/ML 2 ML VIAL IV PRN (10:18)
[2023-07-18] MEDS ORDERED: ATROPINE SULFATE 0.1 MG/ML 10ML SYR IV PRN (10:18)
[2023-07-18] MEDS ORDERED: PROPOFOL IV EMULSION 10 MG/ML 20 ML VIAL IV ONE (10:24)
[2023-07-18] MEDS ORDERED: LIDOCAINE 2% 2 ML VIAL/AMP(20MG/ML) INFIL ONE (10:24)
[2023-07-18] MEDS ORDERED: MIDAZOLAM HCL 1 MG/ML 2ML VIAL ONE (10:25)
[2023-07-18] MEDS ORDERED: fentaNYL citrate PF 100 MCG/2 ML VIAL ONE (10:25)
--- NOTE | 2023-07-18 10:36 | History & Physical Bridge Note ---
Date of Service July 18, 2023 History & Physical Bridge Note I have examined the patient, reviewed the History & Physical and in the interval since the performance of the History & Physical I have noted the following changes of clinical significance: no changes noted
[2023-07-18] MEDS ORDERED: BUPIVACAINE 0.5 % 5 MG/1 ML MPF 30ML VIAL ONE (10:50)
[2023-07-18] MEDS ORDERED: KETAMINE 50 MG/5 ML SYRINGE ONE (11:23)
[2023-07-18] MEDS ORDERED: HYDROmorphone INJ 2 MG/ML SYR/VIAL ONE (12:15)
[2023-07-18] MEDS ORDERED: ONDANSETRON INJ 2 MG/ML 2 ML VIAL ONE (12:30)
[2023-07-18] MEDS ORDERED: DEXAMETHASONE SOD INJ 4 MG/ML VIAL ONE (12:30)
--- NOTE | 2023-07-18 13:23 | Operative Report ---
Post Operative Report Pre & Post Diagnosis Operation Date: 07/18/23 07:00 Pre-Op Diagnosis: Right lateral ankle abscess, infected orthopedic hardware medial and lateral ankle 2 separate sites, cellulitis right lower extremity. Post-Op Diagnosis: Right lateral ankle abscess, infected orthopedic hardware medial and lateral ankle 2 separate sites, tear peroneus brevis tendon, tenosynovitis peroneus longus and brevis tendons, cellulitis right lower extremity. I identified the patient and participated in the time-out.: Yes Procedure Operation Date: 07/18/23 07:00 Actual Procedures p Right Ankle Irrigation and Debridement to bone, Drainage of abscess lateral ankle, Removal of Infected Orthopedic Hardware Medial and Lateral ankle (two separate sites), Tenolysis of the peroneus longus and brevis tendons, Debridement of peroneus brevis tendon tear, Implantation of antibiotic Stimulan Beads 5 cc, Bone Biopsy lateral malleolus, (Right) - Konrad Andrew DO Surgeon Konrad Andrew DO [employer] Ticket Selling None Estimated Blood Loss 2 Findings Consistent with Post-Op Diagnosis Specimens 1. Aerobic, anaerobic and Gram stain from lateral ankle abscess, 2. Bone biopsy lateral malleolus, 3. Phlegmon lateral ankle, 4. Infected orthopedic hardware medial and lateral ankle, 5. Tenosynovitis and tendon specimen peroneus brevis tear. Drains None Anesthesia Type General Complications none Disposition Accompanied Patient To Recovery: No Indications This is a 57-year-old female who presented with 6 days of swelling and draining abscess right lateral ankle. She had prior placement of orthopedic hardware performed by Dr. Yomaira Cooper approximately 20 years prior. Patient presented septic, febrile with ankle pain and cellulitis. X-rays, laboratories, CT scan and ultrasound demonstrate abscess and likely infected orthopedic hardware right lateral and medial ankle. Patient scheduled for surgery as indicated. Description of Procedure All potential risks, benefits, complications, alternatives, rehab, need for further surgery, potential for incomplete relief of symptoms, neurovascular injury, DVT, PE, , stiffness, weakness, loss of function, persistent pain, swelling, numbness, bone fracture, complications from hardware and wound complications were discussed with the patient and family. The patient and family decided to proceed with the procedure as indicated. The patient was taken to the operative suite and placed supine on the operating table. I did review the consent and identified the proper operative site. The patient was anesthetized and LMA was placed. A tourniquet was applied high on the operative right thigh over cast padding. The operative extremity was then sterilely prepped and draped in usual fashion, elevated and partially exsanguinated with an Esmarch bandage due to the nature of the infection in the right lateral ankle. The tourniquet was inflated to 350 mmHg. A small transverse 15 blade scalpel was used to make an incision over the lateral malleolus sinus tract and abscess. The incision was deepened through the subcutaneous tissue to the level of the abscess. Meticulous hemostasis was achieved with electrocautery. Sensory cutaneous nerves were identified, freed with tenotomy scissors, retracted with Ragnell rakes and protected. The abscess fluid was then sampled for aerobic, anaerobic and Gram stain specimens. The specimen was then passed off to the laboratory. Careful dissection was performed with scissors and forceps noting a mature phlegmon which was then s harply excised in its entirety and passed off as specimen for pathology. Next the abscess pocket was then curetted with a large curette until local bleeding was initiated. Next the abscess was copiously irrigated with sterile saline with Ancef and pulse lavage until clear. Next a separate axial incision was made with 15 blade scalpel through the local scar tissue to the level of the lateral malleolar plate and screw heads which were clearly identified. The peroneal tendons were identified and noted to have extensive tenosynovitis and an approximately 1.5 cm length tear of the peroneus brevis. The tendons were then initially carefully retracted with a Sary rake and protected. Next a screwdriver was then used to remove the multiple screws from the lateral plate without difficulty. The plate was then elevated from the lateral malleolus using a freer elevator and removed. The small screw holes were then curetted and irrigated until clear with sterile normal saline. The syndesmosis was noted to be intact with both varus and valgus stress force to the ankle joint. Next a bone biopsy was then sampled from the lateral malleolus using a clean curette. The bone was not particularly soft however did not appear normal either. The specimen was then placed in formalin and transported to pathology for assessment for possible osteomyelitis. Next the rongeur was then used to perform an extensive Natalya synovectomy and tenolysis of the peroneus longus and peroneus brevis tendons. This was followed by sharp debridement with a 15 blade scalpel and rongeur of the approximately 1.5 cm length tear of the peroneus brevis tendon. The damaged portions of the tendon with local hypertrophic tenosynovitis was sent for specimen to pathology. Pulsatile lavage with Ancef was used to copiously irrigate the lateral incision until clear. Next attention was directed to the medial malleolus and a separate incision was made with a 15 blade scalpel which was used to make a linear incision over the medial malleolar screws from proximal to distal through the previously made healed, hypertrophic incision. 15 blade scalpel was used to deepen this skin incision to the subcutaneous tissue. Meticulous hemostasis was achieved with electrocautery. The 2 screw heads were identified and then the screws were removed without difficulty using a screwdriver. The screw holes were then curetted with a small curette until scant amount of bleeding was encouraged. The incision was copiously irrigated with sterile saline with Ancef additive via pulsatile lavage until clear. The dermis was closed using buried interrupted 3- 0 Vicryl. The skin was closed using buried interrupted 3-0 Monocryl sutures. Next final radiographs were obtained using AP fluoroscopic views. The lateral deep soft tissue was irrigated and closed using interrupted 3-0 Vicryl. The dermis was closed using buried interrupted 3-0 Vicryl and skin is closed using 3-0 Monocryl. Next benzoin and Steri-Strips were applied to all incisions. 0.5% Marcaine approximately 30 cc was injected for postoperative pain control. A sterile compressive dressing was applied, posterior Ortho-Glass splint applied and then overwrapped with an Jacob wrap. The tourniquet was released, the patient was awakened and taken to recovery in stable condition. I attest to the content of the Intraoperative Record and any orders documented therein. Any exceptions are noted below.
[2023-07-18] MEDS ORDERED: SODIUM CHLORIDE 0.9% 50 ML BAG ONE (13:39)
[2023-07-18] MEDS ORDERED: PROMETHAZINE HCL INJ 25 MG/ML 1 ML VIAL ONE (13:39)
--- NOTE | 2023-07-18 14:59 | Hospitalist Progress Note ---
Date of Service July 18, 2023 Assessment & Plan (1) Drainage from wound: Plan: R ankle wound with drainage, previous hardware s/p ankle surgery in pt's 20s - 07/18/23 Dr Andrew performed Right Ankle Irrigation and Debridement to bone, Drainage of abcess, Removal of Infected Orthropedic Hardware Medial and Lateral ankle (two seperate sites), Tenolysis of the peroneus longus and brevis, Debridement of the pernius brevis tear, Implantation of Stimulan Beads, Bone Biopsy lateral malleous, - u/s suggests abscess 2.1x1.0x2.3 - wound and blood cultures pending - tylenol 1000mg prn for pain/fever - Vancomycin and Rocephin (2) H/O gastric bypass: Plan: history of surery in her 30"s, not on dietary restricted diet at this time (3) Bipolar 1 disorder: Plan: continue home duloxetine and hydroxyzine (4) GERD (gastroesophageal reflux disease): Admission and Anticipated Discharge Date Admission Date: July 18, 2023 Subjective Patient is pleasant no significant distress Orthopedics performed operative debridement 07/18/23 Physical Exam Physical Exam: Awake alert appropriate. Patient denies any recent anginal symptoms or heart failure symptoms. Her cardiac exam is regular, she has no JVD Lungs are clear without wheezes or crackles Abdomen is NABS and soft Her right ankle has some baseline deformity where it is increasingly supinated there is a scar at the lateral malleolus with erythematous soft area there it is not draining at this time but appears to be likely the nidus of the abscess. Results & Data Results & Data Vital Signs (Past 12 Hours) Vital Signs Temp Pulse Pulse Resp BP BP Pulse Ox 07/18/23 14:49 97.7 F 88 16 138/81 97 07/18/23 14:13 97.7 F 90 16 126/75 91 07/18/23 14:02 97.3 F L 85 13 125/70 93 07/18/23 13:45 97.3 F L 92 H 18 122/76 95 07/18/23 13:35 90 13 133/70 84 L 07/18/23 13:25 90 14 135/83 90 07/18/23 13:15 107 H 20 94/72 L 94 07/18/23 13:08 97.2 F L 100 H 18 155/101 H 99 07/18/23 09:55 98.4 F 77 20 135/80 94 07/18/23 07:48 98.4 F 62 18 158/84 H 96 O2 Del Method O2 Flow Rate 07/18/23 14:49 Nasal Cannula 4 07/18/23 14:13 Room Air 07/18/23 14:02 Room Air 07/18/23 13:45 Nasal Cannula 3 07/18/23 13:35 Nasal Cannula 3 07/18/23 13:25 Nasal Cannula 3 07/18/23 13:15 Nasal Cannula 3 07/18/23 13:08 Nasal Cannula 3 07/18/23 09:55 Room Air 07/18/23 07:48 Room Air PG Care Time/CCT Total # of Minutes Spent Total Time Spent with Patient: Total time spent is greater than 50% in coordination of care (as documented) at patient's floor/unit and/or counseling patient: Coding Level of Care Code 97127 SUB INP/OBS CARE 2/35MIN Diagnoses Drainage from wound L24.A9 H/O gastric bypass Z98.84 Bipolar 1 disorder F31.9 GERD (gastroesophageal reflux disease) K21.9
--- NOTE | 2023-07-18 15:30 | Fluoroscopy Report ---
FL ankle RT 2V CLINICAL HISTORY: RT ANKLE HARDWARE REMOVAL COMPARISON STUDY: CT 07/16/2023 FLUOROSCOPY TIME: 5.2 seconds FLUOROSCOPY IMAGES: 1 EXPOSURE DOSE: 0.12 mGy FINDINGS: Status post removal of the previously described hardware of the medial and lateral malleoli . Antibiotic seeds project over the medial and lateral ankle. Expected postoperative soft tissue swel ling with deep tissue air. No acute fracture identified on this single image. No retained hardware is seen. IMPRESSION: Fluoroscopic assistance as above. ACT 112: Negative or not required by law. Electronically signed by: Juan Miguel Enrique M.D. 07/18/2023 3:28 PM
[2023-07-18] MEDS: HYDROmorphone INJ 1 MG/ML SYRINGE IV PRN ×2 (15:55→20:30)
--- NOTE | 2023-07-18 16:42 | Anesthesiology Progress Note ---
Date of Service July 18, 2023 Anesthesia Post Procedure Vital Signs Vital Signs: Temp Pulse Pulse Resp BP BP Pulse Ox 07/18/23 16:12 86 16 137/82 96 07/18/23 15:23 36.5 C 82 16 123/75 91 07/18/23 14:49 36.5 C 88 16 138/81 97 07/18/23 14:13 36.5 C 90 16 126/75 91 07/18/23 14:02 36.3 C L 85 13 125/70 93 07/18/23 13:45 36.3 C L 92 H 18 122/76 95 07/18/23 13:35 90 13 133/70 84 L 07/18/23 13:25 90 14 135/83 90 07/18/23 13:15 107 H 20 94/72 L 94 07/18/23 13:08 36.2 C L 100 H 18 155/101 H 99 07/18/23 09:55 36.9 C 77 20 135/80 94 07/18/23 07:48 36.9 C 62 18 158/84 H 96 07/17/23 22:35 07/17/23 19:34 36.6 C 72 16 150/87 H 98 O2 Del Method O2 Flow Rate 07/18/23 16:12 Room Air 07/18/23 15:23 Nasal Cannula 4 07/18/23 14:49 Nasal Cannula 4 07/18/23 14:13 Room Air 07/18/23 14:02 Room Air 07/18/23 13:45 Nasal Cannula 3 07/18/23 13:35 Nasal Cannula 3 07/18/23 13:25 Nasal Cannula 3 07/18/23 13:15 Nasal Cannula 3 07/18/23 13:08 Nasal Cannula 3 07/18/23 09:55 Room Air 07/18/23 07:48 Room Air 07/17/23 22:35 Room Air 07/17/23 19:34 Room Air Pain Intensity Right Ankle: Pain Intensity: 10 Transfer of Care Handoff Completed per policy Notes Mental Status: alert / awake / arousable and participated in evaluation Patient Amnestic to Procedure: Yes Nausea / Vomiting: adequately controlled Pain: adequately controlled Airway Patency, RR, SpO2: stable & adequate BP & HR: stable & adequate Hydration State: stable & adequate Anesthetic Complications: no major complications apparent and Pt Satisfied with anesthetic care
[2023-07-18] MEDS: cefTRIAXone SODIUM 2,000 MG in DEXTROSE 5% 50 ML IV SCH (21:44)
[2023-07-18] MEDS: hydrOXYzine HCl 25 MG TAB PO SCH (21:44)
[2023-07-19] MEDS: HYDROmorphone INJ 0.5 MG/0.5 ML SYR IV PRN ×2 (02:06→06:32)
[2023-07-19] MEDS: oxyCODONE HCL IR 5 MG TAB (IMMEDIATE RELEASE) PO PRN ×4 (04:24→23:12)
[2023-07-19] MEDS ORDERED: VANCOMYCIN LEVEL ONE (05:30)
[2023-07-19 06:29] LABS: Hematocrit (blood only) 30.4 % (37.0-47.0); Hemoglobin 10.3 g/dl (12.0-16.0); Mean Corpuscular Hemoglobin 30.9 pg (25.0-34.0); Mean Corpuscular Hgb Conc 33.9 g/dL (32.0-36.0); Mean Corpuscular Volume 91.3 fL (80.0-100.0); Platelet Count 352 K/uL (130-400); RDW Coefficient of Variation 12.6 % (11.5-14.5); RDW Standard Deviation 41.6 fL (36.4-46.3); Red Blood Count 3.33 M/uL (4.20-5.40); White Blood Count 11.54 K/ul (4.8-10.8)
[2023-07-19] MEDS: VANCOMYCIN HCL 1,000 MG in SODIUM CHLORIDE 0.9% 250 ML IV SCH (06:32)
[2023-07-19 06:44] LABS: BUN Creatinine Ratio 9.9 (10-20); Calcium 8.3 mg/dl (8.6-10.3); Est GFR (African American) 111.1 ml/min; Est GFR (Non-African American) 95.9 ml/min; Potassium 3.5 mmol/L (3.5-5.1)
[2023-07-19] MEDS: DULoxetine HCL 30 MG CAP PO SCH ×2 (08:54→20:00)
--- NOTE | 2023-07-19 09:55 | Pharmacy Report ---
Pharmacy PK ABX Note - Date of Service July 19, 2023 - Assessment and Plan Assessment 57 year old F receiving vancomycin and ceftriaxone for treatment of R ankle wound/abscess with drainage * Day 3 of above antimicrobial therapy * Previous surgery on R ankle ~30 years ago. * s/p R ankle I&D, drainage of abscess, removal of infected hardware on 07/18. Micro: 07/16 BC - no growth to date 07/16 R ankle - moderate counts mixed probable skin giselle 07/18 R ankle OR culture - pending Plan Vancomycin * Current regimen: 1000 mg IV every 12 hours * Trough level obtained 07/19/23 resulted as 8.2 mcg/mL. Predicted AUC at steady state: 364 mg/L.hr. This is below goal of 400 - 600 mg/L.hr. * Change to 1500 mg IV every 12 hours * Predicted steady state AUC: 544 * Predicted steady state trough: 15.4 * Repeat drug level in about 48 hours (07/21 @ 0800) Ceftriaxone * 2000 mg IV every 24 hours Pharmacy will continue to follow and will adjust dose/frequency as necessary. Thank you. Pharmacy has transitioned to AUC monitoring for vancomycin. AUC/ELDER is the preferred PK/PD target and is associated with decreased risk of nephrotoxicity compared to traditional trough targets.
[2023-07-19] MEDS: PANTOprazole 40 MG TAB PO SCH (10:46)
[2023-07-19] MEDS: VANCOMYCIN HCL 1,500 MG in SODIUM CHLORIDE 0.9% 500 ML IV SCH ×2 (12:57→23:13)
--- NOTE | 2023-07-19 13:17 | Hospitalist Progress Note ---
Date of Service July 19, 2023 Assessment & Plan (1) Drainage from wound: Plan: R ankle wound with drainage, previous hardware s/p ankle surgery in pt's 20s - 07/18/23 s/p Right Ankle Irrigation and Debridement to bone, Drainage of abcess, Removal of Infected Orthropedic Hardware Medial and Lateral ankle (two seperate sites), Tenolysis of the peroneus longus and brevis, Debridement of the pernius brevis tear, Implantation of Stimulan Beads, Bone Biopsy lateral malleous, -u/s suggests abscess 2.1x1.0x2.3 - wound and blood cultures pending - tylenol 1000mg prn for pain/fever - Vancomycin and Rocephin Follow surgical cultures, narrow once sensitivities are available. Continues to be borderline febrile. Ankle with pinpoint growth, reaccumulating. Blood cultures currently with no growth at 48 hours Neurovascularly intact at bedside visit 07/15 Continue Tylenol, with additional scalp hydromorphone for breakthrough pain control as needed. (2) H/O gastric bypass: Plan: history of surgery in 30s, not on dietary restricted diet at this time (3) Bipolar 1 disorder: Plan: continue home duloxetine and hydroxyzine (4) GERD (gastroesophageal reflux disease): Admission and Anticipated Discharge Date Admission Date: July 18, 2023 Subjective Continues to have pain in her right ankle. Feels this is tolerable, but constant and minimally improved with her current medications. Denies fever/chills/sweats. Denies numbness/tingling. He is able to wiggle toes without difficulty Review of Systems Review of Systems: All systems reviewed & are unremarkable except as noted in Subjective Physical Exam Physical Exam: General: A&Ox3. NAD. Cooperative. HEENT: Atraumatic, normocephalic. Pulm: CTAB A&P. -wheezes, -rales, -rhonchi. Symmetrical chest rise. No increased work of breathing. No respiratory distress. Cardiac: RRR, -mrg. Radial pulses intact and symmetrical. Abdominal: Nontender, nondistended, soft. BS present. Extremities: Right ankle in surgical dressing and wrap. Toes exposed, sensation intact to soft touch in all 5 toes without deficit. DP pulse intact. Able to wiggle toes on right side. Results & Data Results & Data Vital Signs (Past 12 Hours) Vital Signs Temp Pulse Resp BP BP Pulse Ox O2 Del Method 07/19/23 08:25 37.8 C H 83 18 134/77 97 Room Air 07/19/23 02:11 36.5 C 87 18 114/74 93 Room Air PG Care Time/CCT Total # of Minutes Spent Total Time Spent with Patient: Total time spent is greater than 50% in coordination of care (as documented) at patient's floor/unit and/or counseling patient: Coding Level of Care Code 25700 SUB INP/OBS CARE 3/50MIN Diagnoses Drainage from wound L24.A9 H/O gastric bypass Z98.84 Bipolar 1 disorder F31.9 GERD (gastroesophageal reflux disease) K21.9
[2023-07-19] MEDS: hydrOXYzine HCl 25 MG TAB PO SCH (20:00)
[2023-07-19] MEDS: cefTRIAXone SODIUM 2,000 MG in DEXTROSE 5% 50 ML IV SCH (21:20)
--- NOTE | 2023-07-19 22:19 | Orthopedic Progress Note ---
Date of Service July 19, 2023 Assessment & Plan (1) Cutaneous abscess of right ankle: Plan: POD #1 Dressing change tmrw. Continuation with IV antibiotics with likely eventual transition to oral antibiotics based upon clinical and lab findings at the time of surgery. VTE prophylaxis with ASA 81 mg 1 p.o. daily x4 weeks. Begin postop day #1. Thank you for the opportunity to participate in the care of this patient. Konrad Andrew [facility] (2) Infected orthopedic implant: (3) Cellulitis of right lower leg: Admission and Anticipated Discharge Date Admission Date: July 18, 2023 Subjective Mild to moderate pain in her right ankle controlled w/ pain meds and ice. Denies fever/chills/sweats. Denies numbness/tingling. Feeling better. Physical Exam Constitutional: WD/WN, vitals as above Eyes: PERRL, conjunctivae normal, anicteric sclerae ENMT: external ear and nose normal, oropharynx normal Neck: trachea midline, no thyromegaly Respiratory: normal respiratory effort, lungs clear to auscultation Cardiovascular: RRR, no murmur, no edema Gastrointestinal (Abdomen): normal bowel sounds, soft, nontender, no hepatosplenomegaly Musculoskeletal: Splint C/D/I w/o drainage. Toes sensate w/ brisk cap refill. No calf tenderness. Neurologic: PERRL, EOMI, accommodation nl, no face palsy, no dysarthria Psychiatric: A+Ox3, euthymic affect Lymphatic: no cervical or axillary lymphadenopathy Results & Data Vital Signs (Past 12 Hours) Vital Signs Temp Pulse Resp BP Pulse Ox O2 Del Method 07/19/23 19:53 36.9 C 84 16 141/81 H 95 Room Air 07/19/23 16:57 37.0 C 79 18 147/87 H 93 Room Air Laboratory Results Reviewed.
[2023-07-20] MEDS: oxyCODONE HCL IR 5 MG TAB (IMMEDIATE RELEASE) PO PRN (05:40)
[2023-07-20] MEDS: PANTOprazole 40 MG TAB PO SCH (07:54)
[2023-07-20] MEDS: DULoxetine HCL 30 MG CAP PO SCH ×2 (07:54→20:01)
[2023-07-20] MEDS ORDERED: HYDROmorphone INJ 0.5 MG/0.5 ML SYR IV PRN (08:13)
--- NOTE | 2023-07-20 08:14 | Hospitalist Progress Note ---
Date of Service July 20, 2023 Assessment & Plan (1) Drainage from wound: Plan: R ankle wound with drainage, previous hardware s/p ankle surgery in pt's 20s S/p right ankle abscess drainage and hardware irrigation, doing well with improvement in symptoms Continue Dapto/Rocephin, duration of time of Abx based on of patient has evidence of osteo on bone biopsy Wound cultures with mixed skin giselle, bone biopsy pending, unlikely to be back before Sunday Will discuss with patient option of PICC in the event that she needs 6+ weeks of Abx (if evidence of osteo on bone biopsy), possible she only needs 2 weeks Abx if no osteo on bone biopsy Tylenol prn fever/pain, with hydromorphone as needed for breakthrough Case discussed 07/[address] Andrew (2) H/O gastric bypass: Plan: History of surgery in 30s, not on dietary restricted diet at this time (3) Bipolar 1 disorder: Plan: Continue home duloxetine and hydroxyzine (4) GERD (gastroesophageal reflux disease): Plan: Cont pantoprazole Plan Continue IV Abx and IV pain medications, plan for possible PICC tomorrow with overall plan for discharge with [place] [facility] follow up for ABX (will likely be daptomycin 4-6mg/kg daily and ceftriaxone 2g daily Admission and Anticipated Discharge Date Admission Date: July 18, 2023 Subjective No overnight events, reports that her pain is better today compared to yesterday, still with right foot/ankle pain. Itching to go home. No other stated complaints. Physical Exam Constitutional: WD/WN, vitals as above Respiratory: normal respiratory effort, lungs clear to auscultation Cardiovascular: RRR, no murmur, no edema Musculoskeletal: Splint C/D/I w/o drainage. Toes w/ brisk cap refill Results & Data Results & Data Vital Signs (Past 12 Hours) Vital Signs Temp Pulse Resp BP Pulse Ox O2 Del Method 07/20/23 06:57 37.1 C 90 19 153/88 H 91 Room Air 07/20/23 04:00 78 166/64 H 07/19/23 22:45 Room Air 07/19/23 22:28 37.2 C 79 20 163/102 H 94 Room Air PG Care Time/CCT Total # of Minutes Spent Total Time Spent with Patient: Total time spent is greater than 50% in coordination of care (as documented) at patient's floor/unit and/or counseling patient: Coding Level of Care Code 69202 SUB INP/OBS CARE 3/50MIN Diagnoses Drainage from wound L24.A9 H/O gastric bypass Z98.84 Bipolar 1 disorder F31.9 GERD (gastroesophageal reflux disease) K21.9
[2023-07-20 08:56] LABS: Hematocrit (blood only) 31.9 % (37.0-47.0); Hemoglobin 10.9 g/dl (12.0-16.0); Mean Corpuscular Hemoglobin 30.9 pg (25.0-34.0); Mean Corpuscular Hgb Conc 34.2 g/dL (32.0-36.0); Mean Corpuscular Volume 90.4 fL (80.0-100.0); Mean Platelet Volume 10.7 fL (9.4-12.4); Platelet Count 349 K/uL (130-400); RDW Coefficient of Variation 12.6 % (11.5-14.5); RDW Standard Deviation 41.3 fL (36.4-46.3); Red Blood Count 3.53 M/uL (4.20-5.40); White Blood Count 8.46 K/ul (4.8-10.8)
[2023-07-20 09:27] LABS: BUN Creatinine Ratio 8.7 (10-20); Calcium 8.5 mg/dl (8.6-10.3); Creatinine Clr Calc Pharmacy 89.6 ml/min; Est GFR (African American) 113.6 ml/min; Magnesium 1.9 mg/dl (1.7-2.4); Potassium 3.5 mmol/L (3.5-5.1)
[2023-07-20] MEDS: VANCOMYCIN HCL 1,500 MG in SODIUM CHLORIDE 0.9% 500 ML IV SCH (11:15)
[2023-07-20] MEDS: hydrOXYzine HCl 25 MG TAB PO SCH (20:01)
--- NOTE | 2023-07-20 22:20 | Orthopedic Progress Note ---
Date of Service July 20, 2023 Assessment & Plan (1) Cutaneous abscess of right ankle: Plan: POD #2 Dressing change performed. Continuation with IV antibiotics with likely eventual transition to oral antibiotics based upon clinical and lab findings at the time of surgery. VTE prophylaxis with ASA 81 mg 1 p.o. daily x4 weeks. Begin postop day #1. Continue daily sterile/dry dressing changes. Reapply splint. NWB Kaci RIDER. F/U [address] Andrew @ [facility]. Call for appt. Thank you for the opportunity to participate in the care of this patient. Konrad Andrew DO [facility] (2) Infected orthopedic implant: (3) Cellulitis of right lower leg: Admission and Anticipated Discharge Date Admission Date: July 18, 2023 Subjective Improved pain. Wants to go home. No fevers/chills/N/V/D. Physical Exam Constitutional: WD/WN, vitals as above Eyes: PERRL, conjunctivae normal, anicteric sclerae ENMT: external ear and nose normal, oropharynx normal Neck: trachea midline, no thyromegaly Respiratory: normal respiratory effort, lungs clear to auscultation Cardiovascular: RRR, no murmur, no edema Gastrointestinal (Abdomen): normal bowel sounds, soft, nontender, no hepatosplenomegaly Musculoskeletal: Dressing changed. No active bleeding or D/C. Skin warm. Incisions well approximated. Edema diminished. Sensation intact. DP/PT 2/4 B LE. Jamshid's Neg Neurologic: PERRL, EOMI, accommodation nl, no face palsy, no dysarthria Psychiatric: A+Ox3, euthymic affect Lymphatic: no cervical or axillary lymphadenopathy Results & Data Vital Signs (Past 12 Hours) Vital Signs Temp Pulse Resp BP Pulse Ox O2 Del Method 07/20/23 15:09 37.2 C 69 19 123/85 96 Room Air Laboratory Results Reviewed. Awaiting path report.
[2023-07-20] MEDS: DAPTOmycin 400 MG in SYRINGE 0 ML IV SCH (22:35)
[2023-07-20] MEDS: cefTRIAXone SODIUM 2,000 MG in DEXTROSE 5% 50 ML IV SCH (22:35)
[2023-07-21] MEDS: oxyCODONE HCL IR 5 MG TAB (IMMEDIATE RELEASE) PO PRN ×3 (01:53→20:10)
[2023-07-21] MEDS: DULoxetine HCL 30 MG CAP PO SCH ×2 (07:39→20:07)
[2023-07-21] MEDS: PANTOprazole 40 MG TAB PO SCH (07:39)
[2023-07-21 08:05] LABS: Hematocrit (blood only) 30.7 % (37.0-47.0); Hemoglobin 10.6 g/dl (12.0-16.0); Mean Corpuscular Hemoglobin 30.8 pg (25.0-34.0); Mean Corpuscular Hgb Conc 34.5 g/dL (32.0-36.0); Mean Corpuscular Volume 89.2 fL (80.0-100.0); Mean Platelet Volume 10.8 fL (9.4-12.4); Platelet Count 352 K/uL (130-400); RDW Coefficient of Variation 12.5 % (11.5-14.5); RDW Standard Deviation 40.7 fL (36.4-46.3); Red Blood Count 3.44 M/uL (4.20-5.40); White Blood Count 9.49 K/ul (4.8-10.8)
[2023-07-21 08:20] LABS: BUN Creatinine Ratio 11.7 (10-20); Calcium 8.5 mg/dl (8.6-10.3); Est GFR (African American) 118.9 ml/min; Est GFR (Non-African American) 102.6 ml/min; Magnesium 1.8 mg/dl (1.7-2.4); Potassium 3.1 mmol/L (3.5-5.1)
[2023-07-21] MEDS: ASPIRIN 81 MG ECTAB PO SCH (10:07)
[2023-07-21] MEDS ORDERED: ONDANSETRON INJ 2 MG/ML 2 ML VIAL IV PRN (10:16)
--- NOTE | 2023-07-21 13:54 | Hospitalist Progress Note ---
Date of Service July 21, 2023 Assessment & Plan (1) Drainage from wound: Plan: -R ankle wound with drainage, previous hardware s/p ankle surgery in pt's 20s -S/p right ankle abscess drainage and hardware irrigation, doing well with improvement in symptoms -Tylenol prn fever/pain, with hydromorphone as needed for breakthrough -Continue Dapto/Rocephin, ultimately will need 2-6 weeks of Abx, will not know exact timing until bone biopsy is back to eval for evidence of osteo, however Dr. Andrew can extend Abx if needed past the 2 weeks she will discharge with -PICC placed today, plan for patient to discharge home with home health services, self-admin of Abx with teaching from home health services, possible discharge tomorrow if able to arrange all of this (2) H/O gastric bypass: Plan: -History of surgery in 30s, not on dietary restricted diet at this time (3) Bipolar 1 disorder: Plan: - Continue home duloxetine and hydroxyzine (4) GERD (gastroesophageal reflux disease): Plan: -Cont pantoprazole Plan -Continue IV Abx and IV pain medications, PICC today with overall plan for discharge with home health Abx follow up with Dr. Andrew regarding duration of such Admission and Anticipated Discharge Date Admission Date: July 18, 2023 Subjective Doing well with pivoting and transfers, pain not bad today, a little nauseated earlier today but improved with turning down heat in her room and has not happened since, no abdominal pain or diarrhea. Physical Exam Constitutional: WD/WN, vitals as above Gastrointestinal (Abdomen): abdomen soft, nontender Musculoskeletal: Splint C/D/I w/o drainage. Toes w/ brisk cap refill Results & Data Results & Data Vital Signs (Past 12 Hours) Vital Signs Temp Pulse Resp BP Pulse Ox O2 Del Method 07/21/23 07:10 37.0 C 75 16 145/78 H 95 Room Air PG Care Time/CCT Total # of Minutes Spent Total Time Spent with Patient: Total time spent is greater than 50% in coordination of care (as documented) at patient's floor/unit and/or counseling patient: Coding Level of Care Code 50403 SUB INP/OBS CARE 2/35MIN Diagnoses Drainage from wound L24.A9 H/O gastric bypass Z98.84 Bipolar 1 disorder F31.9 GERD (gastroesophageal reflux disease) K21.9
[2023-07-21] MEDS ORDERED: POTASSIUM CHLORIDE CRTAB 20 MEQ TABCR PO STA (15:25)
[2023-07-21] MEDS: hydrOXYzine HCl 25 MG TAB PO SCH (20:07)
[2023-07-21] MEDS: cefTRIAXone SODIUM 2,000 MG in DEXTROSE 5% 50 ML IV SCH (21:17)
[2023-07-21] MEDS: DAPTOmycin 400 MG in SYRINGE 0 ML IV SCH (23:27)
[2023-07-22] MEDS: oxyCODONE HCL IR 5 MG TAB (IMMEDIATE RELEASE) PO PRN ×3 (02:56→20:51)
[2023-07-22 08:03] LABS: Hematocrit (blood only) 30.3 % (37.0-47.0); Hemoglobin 10.6 g/dl (12.0-16.0); Mean Corpuscular Hemoglobin 30.9 pg (25.0-34.0); Mean Corpuscular Volume 88.3 fL (80.0-100.0); Mean Platelet Volume 10.6 fL (9.4-12.4); Platelet Count 350 K/uL (130-400); RDW Coefficient of Variation 12.6 % (11.5-14.5); RDW Standard Deviation 40.5 fL (36.4-46.3); Red Blood Count 3.43 M/uL (4.20-5.40); White Blood Count 7.97 K/ul (4.8-10.8)
[2023-07-22 08:23] LABS: BUN Creatinine Ratio 13.3 (10-20); Calcium 8.7 mg/dl (8.6-10.3); Est GFR (African American) 118.9 ml/min; Est GFR (Non-African American) 102.6 ml/min; Potassium 3.7 mmol/L (3.5-5.1)
[2023-07-22] MEDS: DULoxetine HCL 30 MG CAP PO SCH ×2 (08:36→20:52)
[2023-07-22] MEDS: PANTOprazole 40 MG TAB PO SCH (08:36)
[2023-07-22] MEDS: ASPIRIN 81 MG ECTAB PO SCH (08:36)
--- NOTE | 2023-07-22 13:34 | Hospitalist Progress Note ---
Date of Service July 22, 2023 Assessment & Plan (1) Drainage from wound: Plan: -R ankle wound with drainage, previous hardware s/p ankle surgery in pt's 20s -S/p right ankle abscess drainage and hardware irrigation on 07/18/23, doing well with improvement in symptoms -Tylenol prn fever/pain, with hydromorphone as needed for breakthrough -Continue Dapto/Rocephin, ultimately will need 2-6 weeks of Abx, will not know exact timing until bone biopsy is back to eval for evidence of osteo, however Dr. Andrew can extend Abx if needed past the 2 weeks she will discharge with PICC line -PICC placed 07/21/23, plan for patient to discharge home with home health services, hopefully tomorrow, self-admin of Abx with teaching from home health services, possible discharge tomorrow if able to arrange all of this (2) H/O gastric bypass: Plan: -History of surgery in 30s, not on dietary restricted diet at this time (3) Bipolar 1 disorder: Plan: - Continue home duloxetine and hydroxyzine (4) GERD (gastroesophageal reflux disease): Plan: -Cont pantoprazole Plan -Continue IV Abx and IV pain medications, with overall plan for discharge with home health Abx follow up with Dr. Andrew regarding duration of such -Unable to arrange home health services/MTU through insurance today so do not feel comfortable discharging without plan in place for Abx Admission and Anticipated Discharge Date Admission Date: July 18, 2023 Subjective No overnight events, pain relatively well controlled, no complaints today. Physical Exam Constitutional: WD/WN, vitals as above Gastrointestinal (Abdomen): abdomen soft, nontender Musculoskeletal: Splint C/D/I w/o drainage. Toes w/ brisk cap refill, pulses appropriate Results & Data Results & Data Vital Signs (Past 12 Hours) Vital Signs Temp Pulse Resp BP Pulse Ox O2 Del Method 07/22/23 07:50 Room Air 07/22/23 07:00 36.7 C 67 18 146/83 H 95 Room Air PG Care Time/CCT Total # of Minutes Spent Total Time Spent with Patient: Total time spent is greater than 50% in coordination of care (as documented) at patient's floor/unit and/or counseling patient: Coding Level of Care Code 63771 SUB INP/OBS CARE 2/35MIN Diagnoses Drainage from wound L24.A9 H/O gastric bypass Z98.84 Bipolar 1 disorder F31.9 GERD (gastroesophageal reflux disease) K21.9
--- NOTE | 2023-07-22 16:44 | Orthopedic Progress Note ---
Date of Service July 22, 2023 Assessment & Plan (1) Cutaneous abscess of right ankle: Plan: POD #3 Dressing change performed by nursing today. Continuation with IV antibiotics with likely eventual transition to oral antibiotics based upon clinical and lab findings at the time of surgery. VTE prophylaxis with ASA 81 mg 1 p.o. daily x4 weeks. Begin postop day #1. Continue daily sterile/dry dressing changes by nursing staff. Reapply splint. NWB R LE. Ice and elevate right ankle. Orthopedics to sign off at this point unless otherwise needed. F/U [address] Andrew @ [facility]. Call for appt. Thank you for the opportunity to participate in the care of this patient. Konrad Andrew DO [facility] (2) Infected orthopedic implant: (3) Cellulitis of right lower leg: Admission and Anticipated Discharge Date Admission Date: July 18, 2023 Subjective Resting in bed. Pain well controlled right ankle and steadily improving. No fevers and no chills. Physical Exam Constitutional: WD/WN, vitals as above Eyes: PERRL, conjunctivae normal, anicteric sclerae ENMT: external ear and nose normal, oropharynx normal Neck: trachea midline, no thyromegaly Respiratory: normal respiratory effort, lungs clear to auscultation Cardiovascular: RRR, no murmur, no edema Gastrointestinal (Abdomen): normal bowel sounds, soft, nontender, no hepatosplenomegaly Musculoskeletal: Splint clean/dry/intact without discharge. Toes pink and warm. Brisk capillary refill less than 2 seconds. Sensation intact to toes. Homans' sign is negative. Compartments are soft. Skin: no rashes, warm and dry Neurologic: PERRL, EOMI, accommodation nl, no face palsy, no dysarthria Psychiatric: A+Ox3, euthymic affect Lymphatic: no cervical or axillary lymphadenopathy Results & Data Vital Signs (Past 12 Hours) Vital Signs Temp Pulse Resp BP Pulse Ox O2 Del Method 07/22/23 15:05 37.1 C 79 18 133/76 94 Room Air 07/22/23 07:50 Room Air 07/22/23 07:00 36.7 C 67 18 146/83 H 95 Room Air
[2023-07-22] MEDS: hydrOXYzine HCl 25 MG TAB PO SCH (20:52)
[2023-07-22] MEDS: DAPTOmycin 400 MG in SYRINGE 0 ML IV SCH (22:03)
[2023-07-22] MEDS: cefTRIAXone SODIUM 2,000 MG in DEXTROSE 5% 50 ML IV SCH (22:03)
[2023-07-23] MEDS: oxyCODONE HCL IR 5 MG TAB (IMMEDIATE RELEASE) PO PRN (06:00)
--- NOTE | 2023-07-23 07:45 | Discharge Summary ---
Discharge Summary Date of Service July 23, 2023 Notes For Next Care Provider Needs follow up with Ortho regarding infected hardware May need longer than 2 weeks of antibiotics, please follow up on bone biopsy pathology results Continue dapto/Rocephin, patient has PICC Admission HPI Per Admitting Provider Pt is a 57 yo female with a past medical history of GERD, gastric bypass in 30s, and bipolar disorder who presents to the hospital on 07/16/23 for R ankle drainage. Pt states that she had ankle surgery in her 20s, then about 6-7 years ago she noticed that she would get lateral ankle swelling intermittently, which would go away on its own after a day or two. She states that about 2 weeks ago, it started to get swollen and help sore and looked a little red. She states about 5 days ago she felt a pop sensation and noted that there was now a hole that drained fluid from the wound. She states that then last night she noticed she had a 101F fever and chills. 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 She also noted some R calf soreness and states she has been getting cramps lately. No further questions or complaints at this time. Social Hx: - Alcohol: denies - Smokin ppd for 43 years, current smoker - Other drug use: denies Admission Exam Per Admitting Provider General:Alert and oriented, no acute distress, HEENT:Normocephalic, moist oral mucosa, Cardio:Regular rate and rhythm, Resp: Lungs clear to auscultation b/l, GI:Soft and nontender, nondistended, bowel sounds active Extremities:lateral R ankle with 1 inch diameter area of swelling and mild erythema with notable small draining hole, currently draining serous fluid, no foul smell noted, no calf tenderness or calf erythema noted Skin:Warm, pink, dry Psych:Mood-affect congruence Principal Dx & Hospital Course #1 = Principal Diagnosis (1) Drainage from wound: -R ankle wound with drainage, previous hardware s/p ankle surgery in pt's 20s -S/p right ankle abscess drainage and hardware irrigation on 07/18/23, doing well with improvement in symptoms -Tylenol prn fever/pain -Continue Dapto/Rocephin, ultimately will need 2-6 weeks of Abx, will not know exact timing until bone biopsy is back to eval for evidence of osteo, however Dr. Andrew can extend Abx if needed past the 2 weeks and she will discharge with PICC line -PICC placed 07/21/23, [facility], self-admin of Abx (2) Infected orthopedic implant: -See above -Infected orthopedic hardware, medial and lateral ankle, present on admission (3) Cellulitis of right ankle: -See above -Cellulitis of right ankle (4) H/O gastric bypass: -History of surgery in 30s, not on dietary restricted diet at this time (5) Bipolar 1 disorder: -Continue home duloxetine and hydroxyzine (6) GERD (gastroesophageal reflux disease): -Cont pantoprazole Plan -Continue IV Abx on discharge at least x2 weeks, perhaps longer based on bone biopsy pathology Discharge Exam Constitutional WD/WN, vitals as above Cardiovascular intact pulses, capillary refill, sensation of right foot Skin no rashes, warm and dry Updated Medication List Medication Instructions Recorded Confirmed Type cyanocobalamin (vitamin B-12) 1,000 mcg PO DAILY 11/13/18 07/16/23 History 1,000 mcg tablet (Vitamin B-12) duloxetine 30 mg capsule,delayed 30 mg PO AMPM 11/13/18 07/16/23 History release (Cymbalta) multivitamin 1 tab PO DAILY 11/13/18 07/16/23 History hydroxyzine HCl 25 mg tablet 25 mg PO HS PRN Anxiety 07/22/21 07/16/23 History acetaminophen 500 mg tablet 1,000 mg PO Q8 PRN Pain 07/16/23 07/16/23 History (Tylenol Extra Strength) ibuprofen 200 mg tablet 400 mg PO Q6H PRN Pain 07/16/23 07/16/23 History omeprazole 40 mg capsule,delayed 40 mg PO QAM 07/16/23 07/16/23 History release potassium 99 mg tablet 0 mg PO DAILY 07/16/23 07/16/23 History aspirin 81 mg tablet,delayed 81 mg PO QAM #30 tabs 07/23/23 Rx release oxycodone 5 mg tablet 5 mg PO Q6H PRN severe pain (scale 07/23/23 Rx score 7-10) #10 tabs Hospital Stay Data Consultations 07/16/23 21:44 ED Decision to Admit Stat 07/17/23 03:54 Consult Orthopedic Surgery Routine Procedures Performed Operation Date: 07/18/23 07:00 Actual Procedures p Right Ankle Irrigation and Debridement to bone, Drainage of abcess, Removal of Infected Orthropedic Hardware Medial and Lateral ankle (two seperate sites), Tenolysis of the peroneus longus and brevis, Debridement of the pernius brevis tear, Implantation of Stimulan Beads, Bone Biopsy lateral malleous, (Right) - Konrad Andrew DO s Removal Hardware Medial and Lateral(Right) - Konrad Andrew DO Diagnostic Imagining Performed 07/16/23 21:30 CT ankle RT w con Stat US venous doppler LE RT Stat 07/18/23 FL ankle RT 2V Routine Pending Results Patient Have Any Pending Studies at Discharge: Yes Discharge Instructions Given to Patient (Per Discharging Provider) You were admitted to the hospital for evaluation and management of a right ankle hardware infection. You were taken to the OR on the and that infection was cleaned out by Dr. Andrew. You are put on IV antibiotics, which we will continue for at least 2 weeks while we wait for bone biopsy results. Please make sure that Dr. Andrew follows up on these bone biopsy results, which were pending at time of discharge, as these determine how long you will need antibiotics for. You are arranged to have IV antibiotics once daily at home. You will use 2 antibiotics, what is called ceftriaxone, and the other one is called daptomycin. These are both once daily through your IV site. At home, for pain you can use Tylenol and ibuprofen as tolerated, and I will send a few oxycodone tablets as needed for severe pain, but discuss this with Dr. Dr. Andrew if this is not working out. You should use the walker provided to help you get around. You may need longer than 2 weeks of antibiotics, you should call Dr. Andrew's office later this week to find out if this is the case. To prevent blood clots, you should start taking a daily baby aspirin, 81 mil ligrams, for a total of 4 weeks and then you can stop it. You can buy a bottle at the pharmacy over the counter. You can follow up on this with Dr. Andrew also. If you have any concerns with regard to getting around, worsening signs of infection, fevers, inability to keep food down, red streaks up your leg, contacted Dr. Andrew's office and seek urgent medical attention. Total Time Total Time Spent Total Time Spent (In Minutes): 35 min Coding Level of Care Code 56099 INP/OBS DISCH >30 MIN Diagnoses Drainage from wound L24.A9 Infected orthopedic implant T84.7XXA Cellulitis of right ankle L03.115 H/O gastric bypass Z98.84 Bipolar 1 disorder F31.9 GERD (gastroesophageal reflux disease) K21.9
[2023-07-23] MEDS: ASPIRIN 81 MG ECTAB PO SCH (08:01)
[2023-07-23] MEDS: DULoxetine HCL 30 MG CAP PO SCH (08:01)
[2023-07-23] MEDS: PANTOprazole 40 MG TAB PO SCH (08:01)
[2023-07-23] MEDS ORDERED: cefTRIAXone SODIUM 2,000 MG in DEXTROSE 5% 50 ML IV SCH (13:00)
[2023-07-23] MEDS ORDERED: DAPTOmycin 400 MG in SYRINGE 0 ML IV SCH (13:00)
== END 2023-07-23 17:06 | disposition home or self-care (01) | DRG 478 ==
LOC: ED 16:27 → EDINP 16:27 → SUATTDRO 22:06 → 3N 22:28 → SUATTDRO 07-18 08:59